=== PATIENT | male | born 1950 | race Caucasian/White ===

== ENCOUNTER 2021-07-13 01:47 | Day surgery (SDC) | payer MEDICARE, SELFPAY ==
[2021-07-01 15:42] VITALS: BMI 30.3
--- NOTE | 2021-07-13 07:01 | PM.HPGS ---
History of Present Illness History of Present Illness Consent: Risks, benefits, and alternatives have been discussed and questions answered. Patient agrees to proceed with procedure. Chief complaint: neoplasm screening Narrative: Andrew Goldman is a 71 year old male referred for colon cancer screening Review of Systems Review of Systems: All systems reviewed & are unremarkable except as noted in HPI and below PMFSH Past Medical History Medical History Diabetes Hyperlipidemia Obesity Family History Family History Father Hypertension Family history of elevated blood lipids Family history of diabetes mellitus in first degree relative Family history of coronary artery disease, Onset Age: 56 Patient's father is Social History Social History Smoking status: Never smoker Second hand tobacco smoke exposure: No Smoking end date: 06/20/10 Alcohol intake: current Drinks per week: 3 Living arrangements: with family Spiritual care concerns: No Meds Home Medications and Allergies Home Medications Medication Instructions Recorded Confirmed Type alogliptin 25 mg PO DAILY 07/01/21 07/13/21 History levocetirizine [Xyzal] 5 mg PO DAILY 07/01/21 07/13/21 History rosuvastatin 20 mg PO DAILY 07/01/21 07/13/21 History Allergies Allergy/AdvReac Type Severity Reaction Status Date / Time atorvastatin Allergy Unknown Other Verified 07/13/21 09:39 codeine Allergy Anaphylaxis Verified 07/13/21 09:39 Exam Resp: Auscultation: clear to auscultation bilaterally Cardio: Rate: regular rate Rhythm: regular rhythm GI: GI Palp: Yes Soft to palpation and No Tenderness to palpation present (GI) Assessment and Plan Assessment and plan (1) Colon cancer screening: Code(s): Z12.11 - Encounter for screening for malignant neoplasm of colon Status: Acute Assessment and Plan: Colonoscopy with possible biopsy or polypectomy or cautery or injection of substances.
[2021-07-13 09:40] VITALS: BP 144/73; PULSE 100; RESP 19; TEMP 36; O2SAT 97; BMI 30.9
[2021-07-13] MEDS: LACTATED RINGERS 1,000 ML 150 ML IV CONT (09:52)
[2021-07-13 09:53] LABS: Glucose Point of Care 176 mg/dl (65-105)
--- NOTE | 2021-07-13 10:02 | WPDANESEPPF ---
Anes - Initial Pre Proc Eval Procedure: Operation Date: 07/13/21 10:45 Proposed Procedures p Screening Colonoscopy - Jeffery Dennis MD Date/Time: 07/13/21 10:02 Surgeon: Jeffery Dennis MD Pre Op Diagnosis: neoplasm screening Patient Data Age: 71 Gender: M Height: 1.78 m Weight: 97.7 kg Last Vital Signs Temp 36.0 C L 07/13/21 09:40 Pulse 100 07/13/21 09:40 Resp 19 07/13/21 09:40 BP 144/73 H 07/13/21 09:40 Pulse Ox 97 07/13/21 09:40 Allergies Allergy/AdvReac Type Severity Reaction Status Date / Time atorvastatin Allergy Unknown Other Verified 07/13/21 09:39 codeine Allergy Anaphylaxis Verified 07/13/21 09:39 Home Medications Medication Instructions Recorded Confirmed Type alogliptin 25 mg PO DAILY 07/01/21 07/13/21 History levocetirizine [Xyzal] 5 mg PO DAILY 07/01/21 07/13/21 History rosuvastatin 20 mg PO DAILY 07/01/21 07/13/21 History Laboratory Tests 07/13/21 09:51 POC Capillary Glucose 176 mg/dl H mg/dl (65-105) Patient hx anesthesia problems: none Family hx anesthesia problems: none Results Review: All pre-operative results and documents have been reviewed as part of the pre-operative evaluation. [facility] Past Medical History Medical History (Updated 07/13/21 @ 10:03 by Checo Lopez MD) Diabetes Hyperlipidemia Obesity Family History Family History (System 11/07/20 @ 16:12 by Hortencia Deng) Father Hypertension Family history of elevated blood lipids Family history of diabetes mellitus in first degree relative Family history of coronary artery disease, Onset Age: 56 Patient's father is Social History Social History (System 11/07/20 @ 16:12 by Hortencia Deng) Smoking status: Never smoker Second hand tobacco smoke exposure: No Smoking end date: 06/20/10 Alcohol intake: current Drinks per week: 3 Living arrangements: with family Spiritual care concerns: No Anes - Eval Final PreProcedure Day of Procedure 07/13/21 10:02 Patient weight: obese Heart: regular rate and rhythm Lungs: clear to auscultation and normal air movement Airway: Mallampati scale class II Neurological: alert and oriented Last oral intake: >/= 8 hours ASA classification: III Emergent: no Anesthetic plan: proceed Anesthesia type and monitoring: general GIVS Results Review: All pre-operative results and documents have been reviewed as part of the pre-operative evaluation. Informed Consent: The patient's anesthetic plan and its attendant risks and benefits were discussed with the patient/family/POA. Questions were solicited and answers provided to the satisfaction of the patient/family/POA.
[2021-07-13 10:54] VITALS: BP 98/58; PULSE 90; RESP 13; O2SAT 98
[2021-07-13 11:04] VITALS: BP 97/53; PULSE 74; RESP 13; O2SAT 98
[2021-07-13 11:12] VITALS: BP 116/68; PULSE 84; RESP 14; O2SAT 98
[2021-07-13 11:24] VITALS: BP 120/71; PULSE 80; RESP 18; O2SAT 100
== END 2021-07-13 11:35 | disposition home or self-care (01) ==
PROVIDERS: PCP Family Medicine; Visit Provider Internal Medicine Gastroenterology
PROC: 0DJD8ZZ Inspection of Lower Intestinal Tract, Via Natural or Artificial Opening Endoscopic (ICD-10-PCS; CPT 45378; principal; 2021-07-13 10:45)
DX: Z12.11 Encounter for screening for malignant neoplasm of colon (principal); D12.4 Benign neoplasm of descending colon; D12.5 Benign neoplasm of sigmoid colon; K63.5 Polyp of colon; E11.9 Type 2 diabetes mellitus without complications; E78.5 Hyperlipidemia, unspecified; E66.9 Obesity, unspecified; Z68.30 Body mass index [BMI] 30.0-30.9, adult
CPT/HCPCS: 45380; 45385; 82948; 88305; J2704; J7120

== ENCOUNTER 2021-09-04 08:34 | Outpatient (CLI) | payer MEDICARE, SELFPAY ==
--- NOTE | ~2021-09-04 | CT_ITS ---
EXAMINATION: CT abdomen pelvis w con DATE: 09/04/2021 09:30 INDICATION: Right lower quadrant intermittent pain. Prior appendectomy. TECHNIQUE: Computed tomography (CT) of the abdomen and pelvis was performed with 100 cc Omnipaque 350 intravenous contrast. The dose-length product was 961.03 mGy-cm. Automated exposure control and iter ative reconstruction technique were employed. COMPARISON: None. FINDINGS: Lung bases are unremarkable. Heart size is normal. No significant pleural or pericardial ef fusion. Fatty infiltration of the liver. Gallbladder is present. The spleen, pancreas, adrenal glands are unremarkable. There are bilateral renal cysts. No hydronephrosis. Gallbladder is present. No lym phadenopathy. There is atherosclerosis of the aorta without aneurysm. No free air or free fluid. Nono bstructive bowel pattern. No abnormal pelvic masses or fluid collections. There is mild osteoarthriti s of the hips. IMPRESSION: 1. No acute abdominal abnormality. Reviewed, dictated and finalized at location B.
[2021-09-04 09:00] LABS: Estimated Glomerular Filt Rate > 60
== END 2021-09-04 08:35 | disposition home or self-care (01) ==
LOC: CHSIMG 08:35
PROVIDERS: PCP Family Medicine; Visit Provider Surgery
DX: R10.31 Right lower quadrant pain (principal)
CPT/HCPCS: 74177; Q9967

== ENCOUNTER 2023-09-16 07:22 | Outpatient (CLI) | payer MEDICARE, SELFPAY ==
[2023-09-21 11:06] LABS: Testosterone Free 52.3 pg/mL (30.0-135.0); Testosterone Total 313 ng/dL (250-1100)
== END 2023-09-16 07:23 | disposition home or self-care (01) ==
LOC: CHSLAB 07:26
PROVIDERS: PCP Family Medicine; Visit Provider Family Medicine
DX: R53.83 Other fatigue (principal)
CPT/HCPCS: 36415; 84402; 84403

== ENCOUNTER 2023-09-21 08:06 | Outpatient (CLI) | payer MEDICARE, SELFPAY ==
[2023-09-21 08:23] LABS: Basophils Absolute Auto 0.04 K/mm3 (0.00-0.10); Basophils Percent Auto 0.7 % (0.0-1.0); Eosinophils Absolute Auto 0.25 K/mm3 (0.02-0.50); Eosinophils Percent Auto 4.7 % (1.0-6.0); Hematocrit 49.6 % (37.0-46.0); Hemoglobin 16.6 g/dL (12.4-15.3); Immature Granulocyte Absolute 0.01 K/mm3 (0.00-0.00); Immature Granulocyte Percent A 0.2 % (0.0-0.0); Lymphocytes Absolute Auto 1.53 K/mm3 (1.10-4.50); Lymphocytes Percent Auto 28.7 % (18.0-42.0); Mean Corpuscular HGB Conc 33.5 g/dL (32-36); Mean Corpuscular Hemoglobin 31.9 pg (27.0-31.0); Mean Corpuscular Volume 95.2 fL (78.0-102.0); Mean Platelet Volume 9.4 fl (8.7-11.0); Monocytes Absolute Auto 0.49 K/mm3 (0.10-0.90); Monocytes Percent Auto 9.2 % (2.0-11.0); Neutrophils Absolute Auto 3.02 K/mm3 (1.70-7.20); Neutrophils Percent Auto 56.5 % (50.0-70.0); Platelet Count Result 242 K/mm3 (150-420); Red Blood Count 5.21 M/mm3 (4.70-6.10); Red Cell Distribution Width 12.7 % (11.6-14.4); White Blood Count 5.3 K/mm3 (4.8-10.8)
[2023-09-21 08:36] LABS: Creatinine Urine 106.91 mg/dL (40-278); Hemoglobin A1C 6.9 % (<5.7); MALB Creatinine Ratio 12.1 mg/g (0-30); Microalbumin Urine Random < 13.0 mg/L
[2023-09-21 09:13] LABS: Alanine Aminotransferase 38 U/L (16-63); Albumin Level 4.3 g/dL (3.4-5.0); Alkaline Phosphatase 75 U/L (46-116); Anion Gap 10 mmol/L (4-12); Aspartate Amino Transferase 22 U/L (15-37); Bilirubin Direct 0.1 mg/dL (0-0.2); Bilirubin,Total 0.6 mg/dL (0.00-1.00); Blood Urea Nitrogen 18 mg/dL (7-18); Calcium 9.1 mg/dL (8.5-10.1); Carbon Dioxide 29 mmol/L (21-32); Chloride 105 mmol/L (98-108); Cholesterol 231 mg/dL (0-200); Estimated Glomerular Filt Rate > 60; Glucose 160 mg/dL (70-99); HDL Direct 65 mg/dL (40-60); LDL Cholesterol Calculated 138 mg/dL (<130); Osmolality Calculated 302 mOsm/kg (285-295); Potassium 4.3 mmol/L (3.5-5.1); Prostate Specific Antigen 1.5 ng/mL (< OR = 4.0); Sodium 144 mmol/L (136-145); Total Protein 7.2 g/dL (6.4-8.2); Triglycerides 139 mg/dL (0-150)
[2023-09-24 20:19] LABS: Testosterone Free 60.1 pg/mL (30.0-135.0); Testosterone Total 473 ng/dL (250-1100)
== END 2023-09-21 08:07 | disposition home or self-care (01) ==
LOC: CHSLAB 08:09
PROVIDERS: PCP Family Medicine; Visit Provider Family Medicine
DX: E78.5 Hyperlipidemia, unspecified (principal); Z79.899 Other long term (current) drug therapy; Z12.5 Encounter for screening for malignant neoplasm of prostate
CPT/HCPCS: 36415; 80048; 80061; 80076; 82043; 83036; 84153; 84402; 84403; 85025; G0103

== ENCOUNTER 2024-07-25 15:08 | Outpatient (CLI) | payer MEDICARE, SELFPAY ==
--- NOTE | ~2024-07-25 | XR_ITS ---
HISTORY: Chronic left lower chest pain/rib pain COMPARISON: 12/29/2016 TECHNIQUE: 3 views of the left ribs were performed along with a PA and lateral view of the chest FINDINGS: The cardiomediastinal silhouette is unremarkable. The lungs are year. No acute or subacute displaced left-sided fracture is appreciated. Bone mineralization is age-appropriate. IMPRESSION: No focal infiltrate or effusion. No acute or subacute displaced left-sided rib fracture. The 09/04/2021 CT scan demonstrated a large cyst exophytic from the upper pole of the left kidney, wit hin the region of clinical concern. Perhaps this is the source of patients pain? Repeat contrast-en hanced CT of the abdomen and pelvis versus focused renal ultrasound is recommended for further evalua tion. Please reach out to me personally for any questions regarding these recommendations at [phone] Reviewed, dictated and finalized at location A. O COLORER IMPRESSION: No focal infiltrate or effusion. No acute or subacute displaced left-sided rib fracture. The 09/04/2021 CT scan demonstrated a large cyst exophytic from the upper pole o f the left kidney, within the region of clinical concern. Perhaps this is the source of patients pain? Repeat contrast-enhanced CT of the abdomen and pelvis versus focused renal ultrasound is recommended for further evaluation. Please reach out to me personally for any questions regarding these recommendat ions at [phone]
--- OUTSIDE RECORDS SUMMARY | 2024-07-25 15:43 | XMS_ITS | Encounter Summary ---
Author Organization [facility] Address 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
--- OUTSIDE RECORDS SUMMARY | 2024-07-25 15:43 | XMS_ITS | Encounter Summary ---
Author Organization [facility] Address 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 HISTORY: HISTORY: 272.4-HYPERLIPIDEMIA The patient's most recent LDL was not at goal. 305.1-TOBACCO ABUSE The patient stopped using tobacco products. 466.0-BRONCHITIS ACUTE The patient denies an increase in shortness of breath, sputum production, orseverity of cough. 796.2-BLOOD PRESSURE ELEVATED W/O DX OF HTN The patient denies chest pain, shortness of breath, dyspnea on exertion, pedal edema, or headache. 461.9-SINUSITIS UNSPECIFIED allergy sx PAST MEDICAL HISTORY: MEDICAL: Hypercholesterolemia. 2004 SURGICAL: No previous surgery. CURRENT MEDICATIONS: Patient is currently on no medication. ALLERGIES/ADVERSE REACTIONS: No known drug allergies. FAMILY HISTORY: FATHER: The father is . The cause of was complications of diabetes. occurred atage 56. MOTHER: The mother is living. Illnesses: Alzheimer's disease. SIBLINGS: Nine siblings. Healthy except as noted below. Brother in auto accident SOCIAL HISTORY: MARITAL HISTORY: , living with spouse. LIVING WILL: The patient does not have a living will. TOBACCO USE: Stopped using cigarettes several years ago. 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 CAFFEINE: A minimal amount of caffeinated beverages daily. EXERCISES: The patient is not exercising regularly. DIET: Follows no specific diet. SAFETY ISSUES: Uses seat belts. PHYSICAL EXAMINATION: CONSTITUTIONAL: GENERAL APPEARANCE: Healthy appearing patient in no distress. EARS, NOSE, MOUTH AND THROAT: EARS: EFFUSION PRESENT BILATERALLY. ORAL: Inspection of gums, lips, palate, and teeth normal. No scars, lesions, or masses. Oral mucosaunremarkable with non-inflamed posterior pharynx. NECK/THYROID: Trachea midline. No thyroid enlargement, tenderness, or mass. No supraclavicular or cervical adenopathy. RESPIRATORY: Clear to auscultation and percussion. Normal respiratory effort. CARDIOVASCULAR: CARDIAC: Regular rhythm. No murmurs, rubs, or gallops. ARTERIAL: Aortic pulses of normal amplitude with no bruits. EDEMA/VARICOSITIES OF EXTREMITIES: No edema or varicosities. GASTROINTESTINAL: ABDOMEN: Soft, non-tender, without masses. Bowel sounds active. LIVER/SPLEEN/KIDNEY: No hepatosplenomegaly, tenderness or nodularity. Kidneys not palpable. RECTAL: Rectal exam reveals no masses or hemorrhoids, sphincter tone is normal. STOOL/HEMOCCULT: Stool is hemoccult negative. Stool is normal. GENITOURINARY: PROSTATE: 2+ ENLARGED, symmetrical, soft, smooth. ASSESSMENT/PLAN: 272.4-HYPERLIPIDEMIA discussed, start med MEDICATIONS: ZOCOR ORAL TABLET 20 MG, 1 Every Day, 30 Dispensed, 4 Fills, status: NEW PRESCRIPTION, 09/22/2005. LAB ORDERS: 3 mo Order number: [id number] Test Ordered: LIPID PANEL 7600 Order number: [id number] Test Ordered: ALT 823 305.1-TOBACCO ABUSE quit 602.9-OTHER DISORDERS OF PROSTATE psa ok, recheck 1 year LAB ORDERS: Order number: [id number] Test Ordered: HEMOCCULT SINGLE 66146 796.2-BLOOD PRESSURE ELEVATED W/O DX OF HTN better, reassess 461.9-SINUSITIS UNSPECIFIED MEDICATIONS: RAUL ORAL TABLET 180 MG, 1 Every Day, 30 Dispensed, 4 Fills, status: NEW PRESCRIPTION, 09/22/2005. RETURN VISIT : Patient instructed to return in 3 months. Electronically Signed by: Nki Winn MD on Thursday, September 22, 2005 documented in this encounter Plan of Treatment Not on file documented as of this encounter Visit Diagnoses Not on filedocumented in this encounter
--- OUTSIDE RECORDS SUMMARY | 2024-07-25 15:43 | XMS_ITS | Clinical Summary ---
Author Organization [facility] Address [address] [facility] Attn: Epic Prelude ADT TAMANNA ALVES [address] Care Team Providers Care Child Day Care Provider Name Role Phone Unavailable Primary Care Provider Unavailabl e Allergies Active Allergy Reactions Criticality Noted Date Comments No Known Allergies 08/09/2005 Medications ALBUTEROL 90 MCG/ACTUATION AEROSOL INHALER 2 Four Times A Day, As Needed 1.00 0 08/09/2005 Active LEVAQUIN 500 MG TAB 1 Every Day 10.00 0 08/09/2005 Active RAUL 180 MG TAB 1 Every Day 30.00 4 09/22/2005 Active ZOCOR 20 MG TAB 1 Every Day 30.00 4 09/22/2005 Active Active Problems Problem Noted Date Diagnosed Date Acute sinusitis, unspecified 09/22/2005 Screening for malignant neoplasm of the rectum 0 09/22/2005 Other and unspecified hyperlipidemia 08/09/2005 Acute bronchitis 08/09/2005 Screening for thyroid disorder 08/09/2005 Special screening for malignant neoplasm of pros hopson 08/09/2005 Tobacco use disorder 08/09/2005 Elevated blood pressure read ing without diagnosis of hypertension 08/09/2005 Unspecified disorder of prostate 08/09/2005 Immunizations Immunization Administration Dates Next Due (TDVAX)(7 YRS UP) TETANUS AN D DIPHTHERIA TOXOIDS, ADSORBED (2 LF OF TETANUS TOXOID AND 2 LF OF DIPHTHERIA TOXOID), 0.5ML (PF), IM 11/26/1998 Social History Tobacco Use Types Packs/Day Years Used Date Smoking Tobacco: Never Assessed Sex and Gender Information Value Date Recorded Sex Assigned at Not on file 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 Gender Identity Not on file Sexual Orientation Not on file Last Filed Vital Signs Vital Sign Reading Time Taken Comments Blood Pressure 140/90 08/09/2005 12:00 PM ROD BENDING MACHINE OPERATOR Pulse - - Temperature 36.4 C (97.52 F) 08/09/2005 12:00 PM ROD BENDING MACHINE OPERATOR Respiratory Rate - - Oxygen Saturation - - Inhaled Oxygen Concentration - - Weight 98.9 kg (218 lb) 08/09/2005 12:00 PM ROD BENDING MACHINE OPERATOR Height 180.3 cm (5' 11 ) 08/09/2005 12:00 PM ROD BENDING MACHINE OPERATOR Body Mass Index 30.4 08/09/2005 12:00 PM ROD BENDING MACHINE OPERATOR Plan of Treatment Health Maintenance Due Date Last Done Comments COLORECTAL SCREENING 02/02/1996 FIT-DNA Q 3 years 02/02/1996 Flex Sig/CT Colonography Q 5 years 02/02/1996 DTAP/TDAP/TD VACCINES (1 - Tdap) 11/27/1998 11/26/18 99 PNEUMOCOCCAL VACCINE 65+ YEARS (1 of 1 - PCV) 02/02/20 01 ZOSTER VACCINE (1 of 2) 2001 Colorectal Cancer Screening 09/22/2006 FIT/FOBT Q 1 year 09/22/2006 09/22/2005 INFLUENZA VACCINE (#1) 2024 RSV VACCINE (60+ or ) (1 - 1-dose 75+ series) 2026
--- OUTSIDE RECORDS SUMMARY | 2024-07-25 15:43 | XMS_ITS | Encounter Summary ---
Author Organization [facility] Address 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
--- OUTSIDE RECORDS SUMMARY | 2024-07-25 15:43 | XMS_ITS | Encounter Summary ---
Author Name [facility] of [facility] Affairs ([place]) [facility] Address [address] [place] [address] Care Team Providers Care Marketing Rep Name Role Phone SANGEETA LOPEZ Primary Care Provider Unavailabl e Insurance Providers: All historical and current Section Date Range: From patient's date of to the date document was created. This section includes the names of all active insurance providers for the patient. Insurance Provider Type of Coverage Plan Name Start of Policy Coverage End of Policy Coverage Group Number Member ID Insurance Provider's Telephone Number Policy Smith's Name Patient's Relationship to Policy Smith AARP [facility] CLAIMS MEDIGAP PLAN F MEDIC ARE SUPPL EMENT Jun 20, 2017 PLAN F [id number] [phone] ETSELA GOLDMAN RNARD PATIENT MEDICARE (WNR) MEDICARE (M) PART A Jan 19, 2016 PART A [id number] [phone] ESTELA GOLDMAN RNARD PATIENT MEDICARE (WNR) MEDICARE (M) PART B Jan 19, 2016 PART B [id number] ESTELA GOLDMAN RNANADIRA PATIENT Selected Encounter This section includes the information on record at DC for the Encounter. Date/Time Encounter Type Encounter Description Reason Provider Source October 20, 2023 03:00 PM Outpatient Encounter PRIMARY CARE/MEDICINE ICD-10-CM Z00.00 Encntr for general adult medical exam w/o abnormal findings SANGEETA LOPEZ Amanda Encounter Template Text not used by DC Assessments - Encounter Diagnoses This section includes the primary and secondary diagnoses documented for the Encounter. Date/Time Primary/Secondary Diagnosis Diagnosis Name Provider Source October 20, 2023 03:21 PM PRIMARY Encntr for general adult medical exam w/o abnormal findings SANGEETA LOPEZ [facility] October 20, 2023 03:21 PM SECONDARY Allergic rhinitis, unspecified SANGEETA LOPEZ [facility] October 20, 2023 03:21 PM SECONDARY Chronic obstructive pulmonary disease, unspecified SANGEETA LOPEZ [facility] October 20, 2023 03:21 PM SECONDARY Contact with and exposure to other hazardous substances SANGEETA LOPEZ [facility] October 20, 2023 03:21 PM SECONDARY Hyperlipidemia, unspecified SANGEETA LOPEZ [facility] October 20, 2023 03:21 PM SECONDARY Type 2 diabetes mellitus without complications [place]AV[place]ANGEETA [facility] Plan of Treatment: Future Appointments (+ 6 months) and Future Tests (+/- 45 days) The Plan of Treatment section includes future care activities for the patient from all [facility]. This section includes future appointments and future orders which are active, pending or scheduled. Future Appointments This section includes appointments that were scheduled to occur 6 months from the date of the Encounter, up to a maximum of 20 appointments. The data comes from all [facility] facilities. Appointment Date/Time Appointment Type Appointme nt Facility Name Nov 25, 2023 07:30 AM AMBULATORY - NONE [facility] Vital Signs: All taken on the encounter date This section contains inpatient and outpatient Vital Signs collected on the date of the Encounter. Date/Time Temperature Pulse Blood Pressure Respiratory Rate SP02 Pain Height Weight Body Mass Index Source October 20, 2023 03:11 PM 139/65 [facility] October 20, 2023 02:52 PM 142/70 [facility] October 20, 2023 02:44 PM 97.9 74 168/74 18 96 0 71 206.2 29 [facility] Social History: Smoking Status (Most current) and Tobacco Use (All prior to encounter date) This section includes the most current, and the historical, smoking and tobacco- related health factors from the [place] facility where the Encounter took place. Current Smoking Status This section includes the most current smoking, or tobacco-related health factor, from the [place] facility where the Encounter took place. Date/Time Current Smoking Status Comment Facil ity October 20, 2023 03:00 PM VA-TOBACCO FORMER USER [facility] Tobacco Use History This section includes a history of the smoking, or tobacco-related health factors, that were collected on or before the date of the Encounter. The data comes from the [place] facility where the Encounter took place. Date/Time Smoking Status/Tobacco Use Comment F acility October 20, 2023 03:00 PM VA-TOBACCO QUIT 15 YRS OR MORE [facility] Sep 07, 2018 08:30 AM VA-TOBACCO FORMER USER [facility] Sep 07, 2018 08:30 AM DC-TOBACCO QUIT 5 TO < 15 YRS [facility] Encounter Notes: All associated encounter notes This section contains the clinical notes associated to the Encounter. Date/Time Encounter Note(s) Provider Source Nov 28, 2023 08:32 AM PHYSICIAN LETTERS: LOCAL TITLE: TEST RESULT GENERAL LETTER [facility] STANDARD TITLE: PHYSICIAN LETTERS DATE OF NOTE: NOV 28, 2023@08:32 ENTRY DATE: NOV 28, 2023@08:32:36 AUTHOR: SANGEETA LOPEZ EXP COSIGNER: URGENCY: STATUS: COMPLETED [facility] [address] [place] [address] NOV 28, 2023 MARY ANN GOLDMAN [address] [place] [address] [place] [place], [place] [address] Dear Mary Ann Goldman, I would like to update you on your recent test results. Exam Date/Time 11/25/2023 07:02 Procedure Name US AAA SCREENING Reason for Study Screening due to smoking history Impression No sonographic evidence of abdominal aortic aneurysm. #YOUR SCREENING ULTRASOUND OF YOUR AORTA IS NORMAL; THERE IS NO EVIDENCE OF AN ANEURYSM. What is a AAA screening? Abdominal aortic aneurysm (AAA) screening is a way of checking if there's a bulge or swelling in the aorta, the main blood vessel that runs from your heart down through your tummy. This bulge or swelling is called an abdominal aortic aneurysm, or AAA. It is recommended to do a 1 time screening for AAA with an ultrasound in men aged 65-75 who have a history of smoking. If you have any questions please call your case mgr. I look forward to seeing you at your next clinic appointment. Thank you for choosing the [facility] for your healthcare. FUTURE APPOINTMENTS: 10/23/2024 10:00 [place] CLR PACT 3 PCP Sincerely, Sangeeta Lopez DNP, GARAGE DOOR INSTALLER, PACKAGE DYEING MACHINE OPERATOR-C Primary Care Nurse Practitioner MARY ANN GOLDMAN,SANGEETA REAL RUBEN [facility] October 20, 2023 02:45 PM NURSING NOTE: LOCAL TITLE: V15 PACT FACE TO FACE NOTE ST STANDARD TITLE: NURSING NOTE DATE OF NOTE: OCTOBER 20, 2023@14:45 ENTRY DATE: OCTOBER 20, 2023@14:45:37 AUTHOR: CAYLA CHAN EXP COSIGNER: URGENCY: STATUS: COMPLETED Provider Visit: Patient Identifiers : Full Name Date of Reason for visit: Established Follow-Up Mode of Arrival: Ambulatory Allergy Review: Patient has answered NKA Allergy list reviewed and remains current. Recent Vital Signs: Temperature: 97.9 F [36.6 C] (10/20/2023 14:44) Pulse: 74 (10/20/2023 14:44) Respiration: 18 (10/20/2023 14:44) B/P: 168/74 (10/20/2023 14:44) Pain: 0 (10/20/2023 14:44) Wt: 206.2 lb [93.53 kg] (10/20/2023 14:44) Ht: 71 in [180.3 cm] (10/20/2023 14:44) BMI: 28.8 POX: 96% (10/20/2023 14:44) Would you like to discuss any personal problem, family problem, alcohol use, drug use, or a mental or emotional illness? No Contact provided Primary Care phone number and encouraged to call if any questions or concerns. Review that after hours nurse line [phone] and emergency room are available 10/01 for patient use. Contact verbalized good understanding. Suicide Screen: C-SSRS Screening Emanuel-Suicide Severity Rating Scale (C-SSRS Screener) 1. Over the past month, have you wished you were or wished you could go to sleep and not wake up? No 2. Over the past month, have you had any actual thoughts of killing yourself? No 3. Over the past month, have you been thinking about how you might do this? Response not required due to responses to other questions. 4. Over the past month, have you had these thoughts and had some intention of acting on them? Response not required due to responses to other questions. 5. Over the past month, have you started to work out or worked out the details of how to kill yourself? Response not required due to responses to other questions. 6. If yes, at any time in the past month did you intend to carry out this plan? Response not required due to responses to other questions. 7. In your lifetime, have you ever done anything, started to do anything, or prepared to do anything to end your life (for example, collected pills, obtained a gun, gave away valuables, went to the roof but didn't jump)? No 8. If YES, was this within the past 3 months? Response not required due to responses to other questions. Toxic Exposure Screening: The [place]/caregiver was asked if they believe the experienced any toxic exposure(s), such as Airborne Hazards and Open Burn Pit, [place] War related exposures, Agent [place], Radiation, contaminated water at [place] or other such exposures, while serving in the Armed Forces. [place]/caregiver believes the was exposed to the following while serving in the Armed Forces: Agent [place]: [place]/caregiver was made aware of educational resources that includes information on the Registry Program, presumptive conditions and how to file a claim. Printed information was offered and provided if desired. No questions at this time /caregiver was informed of local points of contact. Contact information for local resources: [facility] Registry Exam Program: [phone] Eligibility: [phone] [id number] Toxic Exposure Screening Follow-Up reminder is needed. Name of person notified: Sangeeta Lopez NP Alcohol Use Screen (AUDIT-C): Alcohol Screen: SCREEN FOR ALCOHOL (AUDIT-C) An alcohol screening test (AUDIT-C) was negative (score=3). 1. How often did you have a drink containing alcohol in the past year? Consider a drink to be a 12 ounce can or bottle of regular beer, 8 ounces of malt liquor, a 5 ounce glass of table wine, or a 1.5 ounce shot of liquor (like scotch, gin, or vodka). Two to three times per week 2. How many drinks containing alcohol did you have on a typical day when you were drinking in the past year? One or two drinks 3. How often did you have six or more drinks on one occasion in the past year? Never Depression Screening: Perform PHQ-2 A PHQ-2 screen was performed. The score was 0 which is a negative screen for depression. Over the past two weeks, how often have you been bothered by the following problems? 1. Little interest or pleasure in doing things Not at all 2. Feeling down, depressed, or hopeless Not at all Homelessness/Food Insecurity Screen: In the past 2 months, have you been living in stable housing that you own, rent, or stay in as part of a household? Yes - Living in stable housing. Are you worried or concerned that in the next 2 months you may NOT have stable housing that you own, rent, or stay in as part of a household? No - Not worried about housing near future The [place] reports the following: Within the past 12 months, you worried whether your food would run out before you got money to buy more. Never true Within the past 12 months, the food you bought just didn't last and you didn't have money to get more. Never true PTSD Screening: PC-PTSD-5 A PTSD screening test (PC-PTSD-5) was negative (score=1). IN THE PAST MONTH, have you ever had any experience that was so frightening, horrible or traumatic. For example: A serious accident or fire a physical or sexual assault or abuse An earthquake or flood A war Seeing someone be killed or seriously injured Having a loved one through homicide or suicide 1. Have you ever experienced this kind of event? YES 2. Had nightmares about the event(s) or thought about the event(s) when you did not want to? NO 3. Tried hard not to think about the event(s) or went out of your way to avoid situations that reminded you of the event(s)? YES 4. Been constantly on guard, watchful, or easily startled? NO 5. [place] numb or detached from people, activities, or your surroundings? NO 6. [place] guilty or unable to stop blaming yourself or others for the event(s) or any problems the event(s) may have caused? NO Learning Assessment: - * This patient's learning ABILITIES, BARRIERS to learning, CULTURAL and ADVENT beliefs, and learning PREFERENCES were assessed. Following are findings of note: Patient reads well. Comment: reading glasses LANGUAGE Patient reports that Botswanan is preferred language for healthcare. Patient reports learning preference is to refer to handouts. Nilam Fall Risk Opt Assessment STL: Nursing Fall Risk Outpatient Assessment Patient reports no falls within the past 12 months. Tobacco Use Screening: The patient is a former tobacco user. The patient quit fifteen or more years ago. /martha/ CAYLA CHAN LPN LICENSED PRACTIAL NURSE Signed: 10/20/2023 14:54 [facility] 20, 2023 02:44 PM PRIMARY CARE NOTE: LOCAL TITLE: PRIMARY CARE PROVIDER ESTABLISHED VISIT [facility] STANDARD TITLE: PRIMARY CARE NOTE DATE OF NOTE: OCTOBER 20, 2023@14:44 ENTRY DATE: OCTOBER 20, 2023@14:44:32 AUTHOR: SANGEETA LOPEZ: URGENCY: STATUS: COMPLETED PRIMARY CARE PROVIDER ESTABLISHED VISIT ST Has ADDENDA REASON FOR VISIT/CHIEF COMPLAINT: Evaluation and management of chronic medical conditions/ My scheduled visit HPI: Patient is a 73 year old WHITE MALE who presents to the clinic for evaluation and management of chronic medical conditions. Patient denies any recent ED visits or hospitalizations. Patient goes by Pat. Private providers: -Patient reports his private PCP manages his primary care. Patient reports coming to the DC for his medications. -Private PCP Dr. Nissa Cordero. Patient reports this PCP is pending to retire and will find a new PCP. #DM 2: -HGA1C 7.5 H % 08/11/2022. Reports has obtained in the private sector recently and was <7.0. -Medications: EMPAGLIFLOZIN. -Reports compliance to medication regimen. -Checking blood sugar: Denies. Denies having diabetic supplies at home, declines supplies today. -Eye exam: Had Tele retinal 10/20/23. -Foot exam: See reminders. -Micral: Due. -Statin: Yes. -ACEI: None. -Denies recent hypo/hyperglycemia episodes. #HLD: -Medication: Simvastatin. -Reports compliance with medication regimen. -Denies any new onset of myalgias. #COPD: -Medications: Albuterol PRN. -Denies increased SOB, coughing, wheezing, mucus production or hemoptysis. #Allergic rhinitis: -Medication: Benadryl PRN and Sinus rinses. -Controlled per patient. SOURCE(S) OF HISTORY: Patient PAST MEDICAL HISTORY: 1) Diabetes Mellitus Type 2 ([facility] [id number]) 2) COPD - Chronic Obstructive Pulmonary Disease ([facility] [id number]) 3) Hyperlipidemia ([facility] [id number]) SOCIAL HISTORY: Tobacco: Former smoker. Quit at age 51. Smoked from ages [age] 1 PPD. Alcohol: 1 glass of wine 1-2 times per week. Illicit: Denies. -Patient lives with . Patient has three children. ALLERGIES: Patient has answered NKA ALLERGY REVIEW: Allergy list reviewed and remains current. MEDICATIONS: Active and Recently Outpatient Medications (excluding Supplies): Active Outpatient Medications Status 1) ALBUTEROL 90MCG (CFC-F) 200D ORAL INHL INHALE 2 PUFFS ACTIVE BY ORAL INHALATION FOUR TIMES A DAY NEEDED FOR BREATHING. SHAKE WELL. RINSE MOUTHPIECE FREQUENTLY TO PREVENT CLOGGING. 2) EMPAGLIFLOZIN 25MG TAB TAKE ONE TABLET BY MOUTH ONCE ACTIVE A DAY 3) SIMVASTATIN 80MG TAB TAKE ONE-HALF TABLET BY MOUTH ACTIVE EVERY EVENING TO LOWER CHOLESTEROL (REPORT ANY MUSCLE PAIN OR WEAKNESS) REVIEW OF SYSTEMS: Constitutional: Denies weight loss, fever, chills. Ears, Nose, Mouth, Throat: Denies nasal drainage or sore throat. Denies dizziness. Endocrinology: Denies heat or cold intolerance, polydipsia, polyuria, or polyphagia. Cardiovascular: Denies chest pain, palpitations, or dizziness. Respiratory: Denies cough or shortness of breath. ABD/GI: Denies abdominal pain, nausea, vomiting, constipation, diarrhea or incontinence. Musculoskeletal/Extremities : Denies edema. Denies pain. /SALES VENDOR: Denies frequency, hesitancy, urgency, or hematuria. Psychology: Denies insomnia or SI/HI. Denies anxiety or depression. Neurology: Denies RAMIREZ, tremors, neuropathy, or seizures. Skin: Denies rashes, skin lesions. PHYSICAL EXAMINATION: VITALS (most recent, as listed in the electronic record): Temperature: 97.9 F [36.6 C] (10/20/2023 14:44) BP: 139/65 (10/20/2023 15:11) Pulse: 74 (10/20/2023 14:44) Resp: 18 (10/20/2023 14:44) PulsOx: 96% (10/20/2023 14:44) Pain: 0 (10/20/2023 14:44) Weight: Measurement DT WEIGHT LB(KG)[BMI] 10/20/2023 14:44 206.2(93.53)[29*] HEENT: EOMI, PERRLA, Moist mucous membranes. No Scleral icterus or cervical lymphadenopathy. Lungs: Clear to auscultation bilaterally. No accessory muscle use. Cardiovascular: Regular rate and rhythm. No murmur. No JVD. Abdomen: Soft, nontender and non-distended. No palpable masses. Positive bowel sounds in all four quadrants. Extremities: No edema. Nontender. Full ROM to all joints. Gait steady. : Deferred. Neurologic: No focal neurological deficits. Psychiatric: Appropriate mood and affect. Skin: Skin warm, dry and intact. No lesions or rashes noted. DATA REVIEW: HGA1C 7.5 H % 08/11/2022 08:13 Lipid Panel: TRIGLYCERIDE 102 mg/dL 08/11/2022 08:13 CHOLESTEROL 196 mg/dL 08/11/2022 08:13 HDL(New) 54 mg/dL 08/11/2022 08:13 CALCULATED LDL 122 mg/dL 08/11/2022 08:13 CMP: SODIUM 142 mEq/L 08/11/2022 08:13 POTASSIUM 5.3 H mEq/L 08/11/2022 08:13 CHLORIDE 108 H mEq/L 08/11/2022 08:13 UREA NITROGEN 16 mg/dL 08/11/2022 08:13 CREATININE 0.82 mg/dL 08/11/2022 08:13 CALCIUM 9.4 mg/dL 08/11/2022 08:13 PROTEIN 7.0 g/dL 08/11/2022 08:13 ALBUMIN 4.4 g/dL 08/11/2022 08:13 ALKALINE PHOSPHATASE 64 U/L 08/11/2022 08:13 ALT/SGPT 21 U/L 08/11/2022 08:13 AST/SGOT 25 U/L 08/11/2022 08:13 TOTAL BILIRUBIN 0.6 mg/dL 08/11/2022 08:13 CARBON DIOXIDE 24 mEq/L 08/11/2022 08:13 GLUCOSE 118 H mg/dL 08/11/2022 08:13 EGFR (CKD-EPI 2020) 93.9 08/11/2022 08:13 CBC: WBC 6.0 10*3/uL 08/11/2022 08:13 RBC 5.01 10*6/uL 08/11/2022 08:13 HGB 15.5 g/dL 08/11/2022 08:13 HCT 46.6 % 08/11/2022 08:13 MCV 93.0 fL 08/11/2022 08:13 MCH 30.9 pg 08/11/2022 08:13 MCHC 33.3 g/dL 08/11/2022 08:13 RDW 12.8 % 08/11/2022 08:13 PLT 235 10*3/uL 08/11/2022 08:13 MPV 10.4 fL 08/11/2022 08:13 NEUTROPHILS, AUTO % 58 % 08/11/2022 08:13 LYMPHOCYTES, AUTO % 26 % 08/11/2022 08:13 MONOCYTES, AUTO % 10 % 08/11/2022 08:13 EOSINOPHILS, AUTO % 5 % 08/11/2022 08:13 BASOPHILS, AUTO % 1 % 08/11/2022 08:13 IMMATURE GRANS, AUTO % 0.3 % 02/25/2022 08:18 NEUTROPHILS, ABSOLUTE 3.45 10*3/uL 08/11/2022 08:13 LYMPHOCYTES, ABSOLUTE 1.55 10*3/uL 08/11/2022 08:13 MONOCYTES, ABSOLUTE 0.62 10*3/uL 08/11/2022 08:13 EOSINOPHILS, ABSOLUTE 0.29 10*3/uL 08/11/2022 08:13 BASOPHILS, ABSOLUTE 0.05 10*3/uL 08/11/2022 08:13 IMMATURE GRANS, AUTO ABS 0.02 10*3/uL 02/25/2022 08:18 PSA: PROST. SPECIFIC AG.(PB-STL) 1.178 ng/mL 08/11/2022 08:13 Result: Acceptable Health maintenance: -Declines immunizations today. Immunization Series Date Facility Reaction COVID-19 (MODERNA), MRNA, LNP-S,* 2 07/29/2020 [facility] COVID-19 (MODERNA), MRNA, LNP-S,* 1 07/08/2020 [facility] COVID-19 (PFIZER), MRNA, LNP-S, * 5 03/29/2022 [facility] COVID-19 (PFIZER), MRNA, LNP-S, * 3 03/27/2021 [facility] COVID-19 (PFIZER), MRNA, LNP-S, * 2 07/29/2020 [facility] <C> COVID-19 (PFIZER), MRNA, LNP-S, * 1 07/08/2020 [facility] <C> COVID-19 (PFIZER), MRNA, LNP-S, * 4 10/12/2021 [facility] COVID-19 (PFIZER), MRNA, LNP-S, * 1 03/22/2023 [facility] INFLUENZA VACCINE, QUADRIVALENT,* 1 03/22/2023 [facility] PNEUMOCOCCAL CONJUGATE PCV 13 2 02/02/2018 [facility] PNEUMOCOCCAL POLYSACCHARIDE PPV23 1 12/15/2016 [facility] ZOSTER RECOMBINANT 2 11/18/2022 [facility] ZOSTER RECOMBINANT 1 08/17/2022 [facility] -Reports being UTD on TDAP. Colonoscopy: Obtained in the private sector in approx. 2021, denies mentioning a repeat. Patient unsure of name of GI specialist. Patient reports his has a history of colon cancer. PSA: 1.178 ng/mL 08/11/2022. LDCT: Does not qualify. AAA screening: Due. Ordered. Eye exam: Eye clinic contact information given. Obtains labs in the private sector. Reports he will drop off his latest labs and A&P from private PCP to the clinic to continue to fill the veterans medications. ASSESSMENT/PLAN: Annual visit: -Routine labs reviewed. -Preventative health screenings reviewed. -Recommend regular eye exams. -Discussed Fall Safety. -Continue wearing mask in public and wash hands frequently. -Immunizations reviewed. -Evaluation and management per private PCP. DM 2: -Continue medication regimen. -Reviewed lifestyle modifications. -Educated to check feet daily and to have an eye exam yearly. -Evaluation and management per private PCP. HLD: -Continue medication regimen. -Reviewed lifestyle modifications including participating in a low fat/low cholesterol diet. -Dietitian contact information given. -Evaluation and management per private PCP. COPD: -Controlled -Continue medication regimen. -Reviewed lifestyle modifications. -Evaluation and management per private PCP. Allergic rhinitis: -Continue medication regimen. -Educated to limit exposures to allergens, wash bedding in hot water weekly, decrease humidity in the home, and to avoid firsthand or secondhand smoke. -Evaluation and management per private PCP. RETURN TO CLINIC: 1 year or earlier as needed f2f. SUMMARY STATEMENT: Plan of care has been discussed with including expected therapeutic benefits and potential side effects of prescribed medication and treatments. [place] verbalizes understanding and is in agreement with the plan of care. Patient was instructed to keep all scheduled appointments and contact admissions evaluator for any additional problems. 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 Handwritten corrections, additions and/or deletions were made to the list, as appropriate. Corrected Outpatient Medication List was provided to the patient/caregiver. Toxic Exposure Screening Follow-Up: Exposure Concern(s): 10/20/2023 Agent [place] - Toxic Exposure Concern Follow-up Question(s): 10/20/2023 No Questions - Toxic Exposure Concern declines further assistance at this time. Inhaler Use in COPD: Patient declined inhaler use counseling at this encounter. Diabetes Hemoglobin A1c: Patient refused to have a HBGA1c. Avg Risk Colorectal Cancer Screen: AVERAGE RISK colorectal cancer screening is due based on information available to this clinical reminder Patient has arranged or is choosing to arrange this care independent of and without assistance from this DC. Sexual Orientation: The patient thinks of their sexual orientation as: Straight or Heterosexual PAVE Foot Check: A complete foot check was completed at this encounter. VISUAL INSPECTION: Includes inspection for skin breaks, deformity, erythema, trauma, pallor on elevation, dependent rubor, nail deformities, extensive callus and pitting edema. Visual exam results: Normal PEDAL PULSES: Includes palpation of dorsalis and posterior tibial pulses and signs/symptoms of vascular compromise like pain, pallor, parasthesia or paralysis. Present (even if diminished) SENSORY CHECK: Includes 10 gram Monofilament ([place]-Andrew) test of sensation. Intact (Greater than or equal to 80% of sites checked) Abnormal (Less than 80% of sites checked): Intact LOW-RISK: LOW RISK INFORMATION PROVIDED: 1. Advised patient not to walk barefoot. 2. Explained the importance of daily foot checks for changes. 3. Stressed the importance of daily foot hygiene, including bathing and complete drying. The patient verbalized understanding and was offered a detailed handout on diabetic foot care. HTN Assess for Elevated BP>=140/90: Repeat blood pressure: 139/65 The patient was counseled on the importance of regular exercise and/or physical activity in the control of blood pressure. The patient was instructed to try to participate in 120 minutes of aerobic exercise per week if possible and that any increase in physical activity may be useful in controlling blood pressure. The patient was counseled on the importance of diet and weight loss/ control in the regulation of blood pressure. The patient was counseled to reduce their weight to within 10 percent of their ideal body weight. The possible improvement in blood pressure control with even 5 to 10 pounds of weight loss was reviewed. The contribution of dietary sodium to elevated blood pressure was reviewed. The patient was counseled to have a goal sodium intake of 1500mg per day, with no more than 2300mg per day. The patient was counseled that a diet low in dietary saturated and trans fats is beneficial in lowering blood pressure. The patient was counseled that a diet rich in fresh fruits, vegetables and whole grains is beneficial in lowering blood pressure. The patient was counseled to limit alcohol intake to no more than 2 drinks per day for men and 1 drink per day for women. /martha/ Sangeeta Lopez DNP, APRN, PACKAGE DYEING MACHINE OPERATOR-C Primary Care Nurse Practitioner Signed: 10/20/2023 15:21 11/28/2023 ADDENDUM STATUS: COMPLETED Will mail result letter to patient. Exam Date/Time 11/25/2023 07:02 Procedure Name US AAA SCREENING Reason for Study Screening due to smoking history Impression No sonographic evidence of abdominal aortic aneurysm. /nahid Lopez DNP, APRN, PACKAGE DYEING MACHINE OPERATOR-C Primary Care Nurse Practitioner Signed: 11/28/2023 08:32 SANGEETA LOPEZ RUBEN [facility]
--- OUTSIDE RECORDS SUMMARY | 2024-07-25 15:44 | XMS_ITS | Continuity of Care Document ---
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 It does not include entries that were removed or entered in error. Problem Status Onset Date Problem Type Date of Resolution Comments Source Allergic rhinitis Active Condition [facility] COPD - Chronic Obstructive Pulmonary Disease ([facility] [id number]) Active Condition [facility] Diabetes Mellitus Type 2 ([facility] [id number]) Active Condition [facility] Exposure to potentially hazardous substance ([facility] [id number]) Active Condition October 20 Entered By: KENNETH QUINTERO Comment: Entered automatically through IVAN Problem List documentation program [facility] Hyperlipidemia ([facility] [id number]) Active Condition [facility] Diagnosis: ICD-10-CM Z13.5 Encounter for screening for eye and ear disorders Active Diagnosis [facility] Diagnosis: ICD-10-CM Z00.00 Encntr for general adult medical exam w/o abnormal findings Active Diagnosis [facility] Medications Combined list of outpatient medications from [facility] facilities.Medications provided include 1) outpatient medications from the last 15 months, and 2) patient-reported medications. Medication Details Route Status Patient Instructions Prescription Expires Prescription Number Last Dispense Date Ordering Provider Order Date Order Qty Source ALBUTEROL SO4 90MCG/ACTUA T (CFC-F) INHL,ORAL,8 .5GM INHALE 2 PUFFS BY ORAL INHALATI ON FOUR TIMES A DAY NEEDED FOR BREATHIN G. SHAKE WELL. RINSE MOUTHPIE CE FREQUENT LY TO PREVENT CLOGGING . RESPIR ATORY (INHAL ATION) ACTIVE 03/17/2025 [id number] CARLOS HEATON MD 2023 1 [facility] ALBUTEROL SO4 90MCG/ACTUA T (CFC-F) INHL,ORAL,8 .5GM INHALE 2 PUFFS BY ORAL INHALATI ON FOUR TIMES A DAY NEEDED FOR BREATHIN G. SHAKE WELL. RINSE MOUTHPIE CE FREQUENT LY TO PREVENT CLOGGING . RESPIR ATORY (INHAL ATION) DISCONT INUED 01/18/2024 [id number] CARLOS HEATON MD 2022 1 [facility] DIPHENHYDRA MINE CAP,ORAL TAKE BY MOUTH AT BEDTIME NEEDED ORAL ACTIVE CTAARINO LOPEZ R 2023 [facility] EMPAGLIFLOZ IN 25MG TAB TAKE ONE TABLET BY MOUTH ONCE A DAY ORAL ACTIVE 10/20/2024 [id number] 4 CATARINO LOPEZ R 2023 90 [facility] EMPAGLIFLOZ IN 25MG TAB TAKE ONE TABLET BY MOUTH ONCE A DAY ORAL DISCONT INUED 12/12/2023 [id number] 4 CARLOS HEATON MD 2023 90 [facility] EMPAGLIFLOZ IN 25MG TAB TAKE ONE TABLET BY MOUTH ONCE A DAY ORAL DISCONT INUED 01/19/2024 [id number] 4 CARLOS HEATON MD 2022 90 [facility] SIMVASTATIN 80MG TAB TAKE ONE-HALF TABLET BY MOUTH EVERY EVENING TO LOWER CHOLESTE ROL (REPORT ANY MUSCLE PAIN OR WEAKNESS ) ORAL ACTIVE 10/20/2024 [id number] CATARINO LOPEZ R 2023 45 [facility] SIMVASTATIN 80MG TAB TAKE ONE-HALF TABLET BY MOUTH EVERY EVENING TO LOWER CHOLESTE ROL (REPORT ANY MUSCLE PAIN OR WEAKNESS ) ORAL DISCONT INUED 10/20/2024 [id number] 4 CATARINO LOPEZ R 2023 45 [facility] SIMVASTATIN 80MG TAB TAKE ONE-HALF TABLET BY MOUTH EVERY EVENING TO LOWER CHOLESTE ROL (REPORT ANY MUSCLE PAIN OR WEAKNESS ) ORAL DISCONT INUED 01/01/2024 [id number] 4 CARLOS HEATON MD 2023 45 [facility] SIMVASTATIN 80MG TAB TAKE ONE-HALF TABLET BY MOUTH EVERY EVENING TO LOWER CHOLESTE ROL (REPORT ANY MUSCLE PAIN OR WEAKNESS ) ORAL DISCONT INUED 03/21/2024 [id number] 4 CARLOS HEATON MD 2022 45 [facility] SINUS RINSE NEILMED REGULAR KIT USE 1 KIT NOSTRIL( S) ONCE A DAY NASAL ACTIVE CATARINO LOPEZ BERTRAM Anne 2023 [facility] Immunizations Combined list of available immunizations from the Department of Defense and Veterans Affairs facilities. Immunization Series Date Given Administered By Site Reaction Lot Number CVX Code Drug Hand Cementer Status Comments Source COVID-19 (PFIZER), MRNA, LNP-S, PF, DUANE-SUCROSE, 30 MCG/0.3 ML (AGES 12+ YEARS) 1 2022 309 complet [facility] DIVISIO N INFLUENZA VACCINE, QUADRIVALENT, ADJUVANTED 1 2022 205 complet [facility] DIVISIO N ZOSTER RECOMBINANT 2 2022 187 complet [facility] DIVISIO N ZOSTER RECOMBINANT 1 2022 187 complet [facility] DIVISIO N COVID-19 (Readz), MRNA, LNP-S, BIVALENT, PF, 30 MCG/0.3 ML DOSE 5 2021 [facility], HIGH-DOSE, QUADRIVALENT 1 2021 197 [facility] COVID-19 (Readz), MRNA, LNP-S, PF, 30 MCG/0.3 ML DOSE, DUANE-SUCROSE (AGES 12+ YEARS) 4 2021 217 complet [facility] DIVISIO N INFLUENZA, HIGH-DOSE, QUADRIVALENT 2 2020 197 complet [facility] DIVISIO N INFLUENZA, HIGH-DOSE, QUADRIVALENT 1 2020 197 complet [facility] DIVISIO N COVID-19 (PFIZER), MRNA, LNP-S, PF, 30 MCG/0.3 ML DOSE 3 2020 208 complet ed [facility] N COVID-19 (PFIZER), MRNA, LNP-S, PF, 30 MCG/0.3 ML DOSE 2 2020 208 complet ed PFR; [id number]; 1 [facility] DIVISIO N COVID-19 (MODERNA), MRNA, LNP-S, PF, 100 MCG/0.5ML DOSE OR 50 MCG/0.25ML DOSE 2 2020 207 complet ed [facility] COVID-19 (PFIZER), MRNA, LNP-S, PF, 30 MCG/0.3 ML DOSE 1 2020 208 complet ed PFR; [id number]; 1 [facility] DIVISIO N COVID-19 (MODERNA), MRNA, LNP-S, PF, 100 MCG/0.5ML DOSE OR 50 MCG/0.25ML DOSE 1 2020 207 complet ed [facility] INFLUENZA, HIGH-DOSE, QUADRIVALENT 1 2019 197 complet ed [facility] INFLUENZA, UNSPECIFIED FORMULATION 2019 88 complet ed [facility] INFLUENZA, HIGH DOSE SEASONAL 1 2018 135 complet [facility], UNSPECIFIED FORMULATION 2017 88 complet ed [facility] PNEUMOCOCCAL CONJUGATE PCV 13 2 2017 133 complet ed [facility] N PNEUMOCOCCAL POLYSACCHARID E PPV23 1 2016 33 [facility], HIGH DOSE SEASONAL 1 2015 135 complet ed [facility] N INFLUENZA, SPLIT (INCL. PURIFIED SURFACE ANTIGEN) 1 2013 15 [facility] Results Combined list of recent chemistry, hematology and other laboratory results from Department of Defense and Veterans Affairs, ranging from 15 months to all on record, depending upon the facility. Order Name Results Value Reference Range Date Interpretation Specimen Comments Source LIPID PANEL (STL) CHOLESTEROL [MASS/VOLUM E] IN SERUM OR PLASMA 196 mg/dL 0 - 200 08/11 Specimen Type: PLASMA Comment: No hemolysis noted. Ordering Provider: MATT HEATON MD Report Released Date/Time: Aug 10, 2022 11:26 AM Reporting Lab: [facility] [address] [facility] [address] Performing Lab: [facility] [address] [facility] [address] [facility] LIPID PANEL (STL) TRIGLYCERID E [MASS/VOLUM E] IN SERUM OR PLASMA 102 mg/dL 0 - 150 08/11 Specimen Type: PLASMA Comment: No hemolysis noted. Ordering Provider: MATT HEATON MD Report Released Date/Time: Aug 10, 2022 11:26 AM Reporting Lab: [facility] [address] [facility] [address] Performing Lab: [facility] [address] [place] [phone] [facility] LIPID PANEL (STL) CHOLESTEROL IN LDL [MASS/VOLUM E] IN SERUM OR PLASMA BY CALCULATION 122 mg/dL 08/11 Specimen Type: PLASMA Comment: No hemolysis noted. Ordering Provider: MATT HEATON MD Report Released Date/Time: Aug 10, 2022 11:26 AM Reporting Lab: [facility] [address] [facility] [address] Performing Lab: [address] [address] [facility] LIPID PANEL (STL) CHOLESTEROL IN HDL [MASS/VOLUM E] IN SERUM OR PLASMA 54 mg/dL 40 08/11 Specimen Type: PLASMA Comment: No hemolysis noted. Ordering Provider: MATT HEATON MD Report Released Date/Time: Aug 10, 2022 11:26 AM Reporting Lab: [facility] [address] [facility] [address] Performing Lab: [facility] [address] [facility] [address] [facility] COMPREHENS AALIYAH METABOLIC PANEL CREATININE [MASS/VOLUM E] IN SERUM OR PLASMA 0.82 mg/dL 0.7 - 1.3 08/11 Specimen Type: PLASMA Comment: No hemolysis noted. Ordering Provider: MATT HEATON MD Report Released Date/Time: Aug 10, 2022 11:26 AM Reporting Lab: [place] [address] [facility] [address] Performing Lab: [address] [phone] [place] [address] COMPREHENS AALIYAH METABOLIC PANEL UREA NITROGEN [MASS/VOLUM E] IN SERUM OR PLASMA 16 mg/dL 9 - 25 08/11 Specimen Type: PLASMA Comment: No hemolysis noted. Ordering Provider: MATT HEATON MD Report Released Date/Time: Aug 10, 2022 11:26 AM Reporting Lab: [address] [address] Performing Lab: [place] [address] [facility] [address] [facility] COMPREHENS AALIYAH METABOLIC PANEL GLUCOSE [MASS/VOLUM E] IN SERUM OR PLASMA 118 mg/dL 72 - 99 08/11 H Specimen Type: PLASMA Comment: No hemolysis noted. Ordering Provider: MATT HEATON MD Report Released Date/Time: Aug 10, 2022 11:26 AM Reporting Lab: [facility] [address] Performing Lab: [address] [address] [facility] COMPREHENS AALIYAH METABOLIC PANEL SODIUM [MOLES/VOLU ME] IN SERUM OR PLASMA 142 meq/L 136 - 145 08/11 Specimen Type: PLASMA Comment: No hemolysis noted. Ordering Provider: MATT HEATON MD Report Released Date/Time: Aug 10, 2022 11:26 AM Reporting Lab: [facility] [address] [facility] [address] Performing Lab: [facility] [address] [facility] [address] [facility] COMPREHENS AALIYAH METABOLIC PANEL POTASSIUM [MOLES/VOLU ME] IN SERUM OR PLASMA 5.3 meq/L 3.5 - 5 08/11 H Specimen Type: PLASMA Comment: No hemolysis noted. Ordering Provider: MATT HEATON MD Report Released Date/Time: Aug 10, 2022 11:26 AM Reporting Lab: [facility] [address] [facility] [address] Performing Lab: [facility] [address] [facility] [phone] [place] [address] COMPREHENS AALIYAH METABOLIC PANEL CHLORIDE [MOLES/VOLU ME] IN SERUM OR PLASMA 108 meq/L 98 - 107 08/11 H Specimen Type: PLASMA Comment: No hemolysis noted. Ordering Provider: MATT HEATON MD Report Released Date/Time: Aug 10, 2022 11:26 AM Reporting Lab: [facility] [address] [facility] [address] Performing Lab: [facility] [address] [facility] [address] [facility] COMPREHENS AALIYAH METABOLIC PANEL CARBON DIOXIDE, TOTAL [MOLES/VOLU ME] IN SERUM OR PLASMA 24 meq/L 22 - 31 08/11 Specimen Type: PLASMA Comment: No hemolysis noted. Ordering Provider: MATT HEATON MD Report Released Date/Time: Aug 10, 2022 11:26 AM Reporting Lab: [facility] [address] [facility] [address] Performing Lab: [facility] [address] [facility] [address] [facility] COMPREHENS AALIYAH METABOLIC PANEL CALCIUM [MASS/VOLUM E] IN SERUM OR PLASMA 9.4 mg/dL 8.4 - 10.4 08/11 Specimen Type: PLASMA Comment: No hemolysis noted. Ordering Provider: MATT HEATON MD Report Released Date/Time: Aug 10, 2022 11:26 AM Reporting Lab: [facility] [address] [facility] [address] Performing Lab: [phone] [place] [address] COMPREHENS AALIYAH METABOLIC PANEL PROTEIN [MASS/VOLUM E] IN SERUM OR PLASMA 7.0 g/dL 6 - 8.6 08/11 Specimen Type: PLASMA Comment: No hemolysis noted. Ordering Provider: MATT HEATON MD Report Released Date/Time: Aug 10, 2022 11:26 AM Reporting Lab: [place] [address] [facility] [address] Performing Lab: [address] [phone] [place] [address] COMPREHENS AALIYAH METABOLIC PANEL ALBUMIN [MASS/VOLUM E] IN SERUM OR PLASMA 4.4 g/dL 3.4 - 5 08/11 Specimen Type: PLASMA Comment: No hemolysis noted. Ordering Provider: MATT HEATON MD Report Released Date/Time: Aug 10, 2022 11:26 AM Reporting Lab: [address] [address] Performing Lab: [address] [address] [facility] COMPREHENS AALIYAH METABOLIC PANEL BILIRUBIN.T OTAL [MASS/VOLUM E] IN SERUM OR PLASMA 0.6 mg/dL 0.2 - 1.2 08/11 Specimen Type: PLASMA Comment: No hemolysis noted. Ordering Provider: MATT HEATON MD Report Released Date/Time: Aug 10, 2022 11:26 AM Reporting Lab: [address] [address] Performing Lab: [address] [place] [address] [facility] COMPREHENS AALIYAH METABOLIC PANEL ALKALINE PHOSPHATASE [ENZYMATIC ACTIVITY/VO LUME] IN SERUM OR PLASMA 64 U/L 40 - 150 08/11 Specimen Type: PLASMA Comment: No hemolysis noted. Ordering Provider: MATT HEATON MD Report Released Date/Time: Aug 10, 2022 11:26 AM Reporting Lab: [address] [address] Performing Lab: [address] [address] [facility] COMPREHENS AALIYAH METABOLIC PANEL ASPARTATE AMINOTRANSF ERASE [ENZYMATIC ACTIVITY/VO LUME] IN SERUM OR PLASMA 25 U/L 5 - 34 08/11 Specimen Type: PLASMA Comment: No hemolysis noted. Ordering Provider: MATT HEATON MD Report Released Date/Time: Aug 10, 2022 11:26 AM Reporting Lab: [facility] [address] [place] [address] Performing Lab: [address] [address] [facility] COMPREHENS AALIYAH METABOLIC PANEL ALANINE AMINOTRANSF ERASE [ENZYMATIC ACTIVITY/VO LUME] IN SERUM OR PLASMA 21 U/L 8 - 40 08/11 Specimen Type: PLASMA Comment: No hemolysis noted. Ordering Provider: MATT HEATON MD Report Released Date/Time: Aug 10, 2022 11:26 AM Reporting Lab: [facility] [address] [place] [phone] Performing Lab: [address] [address] [facility] COMPREHENS AALIYAH METABOLIC PANEL GLOMERULAR FILTRATION RATE/1.73 SQ M.PREDICTED [VOLUME RATE/AREA] IN SERUM, PLASMA OR BLOOD BY CREATININE- BASED FORMULA (CKD-EPI 2020) 93.9 <60 - 60 08/11 Specimen Type: PLASMA Comment: No hemolysis noted. Ordering Provider: MATT HEATON MD Report Released Date/Time: Aug 10, 2022 11:26 AM Reporting Lab: [facility] [address] [place] [address] Performing Lab: [address] [phone] [place] [address] HGA1C HEMOGLOBIN A1C/HEMOGLO BIN.TOTAL IN BLOOD 7.5 4.0 - 6.0 08/11 H Specimen Type: BLOOD No comment entered. Ordering Provider: MATT HEATON MD Report Released Date/Time: Aug 10, 2022 11:26 AM Reporting Lab: [address] [address] Performing Lab: [address] [phone] [place] [address] PROST. SPECIFIC AG.(PB-STL ) PROSTATE SPECIFIC AG [MASS/VOLUM E] IN SERUM OR PLASMA 1.178 ng/mL 0 - 4 08/11 Specimen Type: SERUM Comment: The listed sex of this patient may not be a typical indication for this test. Therefore, reference ranges or interpretive criteria listed may not be valid. Clinical correlation suggested. Ordering Provider: MATT HEATON MD Report Released Date/Time: Aug 10, 2022 11:26 AM Reporting Lab: [address] [address] Performing Lab: [address] [phone] [place] [address] CBC LEUKOCYTES [#/VOLUME] IN BLOOD BY AUTOMATED COUNT 6.0 10*3/u L 3.6 - 11.2 08/11 Specimen Type: BLOOD No comment entered. Ordering Provider: MATT HEATON MD Report Released Date/Time: Aug 10, 2022 11:26 AM Reporting Lab: [address] [address] Performing Lab: [address] [address] [facility] CBC ERYTHROCYTE S [#/VOLUME] IN BLOOD BY AUTOMATED COUNT 5.01 10*6/u L 4.10 - 5.70 08/11 Specimen Type: BLOOD No comment entered. Ordering Provider: MATT HEATON MD Report Released Date/Time: Aug 10, 2022 11:26 AM Reporting Lab: [address] [address] Performing Lab: [address] [phone] [place] [address] CBC HEMOGLOBIN [MASS/VOLUM E] IN BLOOD 15.5 g/dL 13.1 - 16.8 08/11 Specimen Type: BLOOD No comment entered. Ordering Provider: MATT HEATON MD Report Released Date/Time: Aug 10, 2022 11:26 AM Reporting Lab: [address] [address] Performing Lab: [address] [phone] [place] [address] CBC HEMATOCRIT [VOLUME FRACTION] OF BLOOD 46.6 38.2 - 48.4 08/11 Specimen Type: BLOOD No comment entered. Ordering Provider: MATT HEATON MD Report Released Date/Time: Aug 10, 2022 11:26 AM Reporting Lab: [address] [address] Performing Lab: [address] [address] [facility] CBC MCV [ENTITIC VOLUME] BY AUTOMATED COUNT 93.0 fL 80.0 - 100.0 08/11 Specimen Type: BLOOD No comment entered. Ordering Provider: MATT HEATON MD Report Released Date/Time: Aug 10, 2022 11:26 AM Reporting Lab: [address] [address] Performing Lab: [address] [address] [facility] CBC MCH [ENTITIC MASS] BY AUTOMATED COUNT 30.9 pg 27.0 - 34.0 08/11 Specimen Type: BLOOD No comment entered. Ordering Provider: MATT HEATON MD Report Released Date/Time: Aug 10, 2022 11:26 AM Reporting Lab: [address] [address] Performing Lab: [address] [address] [facility] CBC MCHC [MASS/VOLUM E] BY AUTOMATED COUNT 33.3 g/dL 33.0 - 36.0 08/11 Specimen Type: BLOOD No comment entered. Ordering Provider: MATT HEATON MD Report Released Date/Time: Aug 10, 2022 11:26 AM Reporting Lab: [address] [address] Performing Lab: [address] [address] [facility] CBC PLATELETS [#/VOLUME] IN BLOOD BY AUTOMATED COUNT 235 10*3/u L 150 - 400 08/11 Specimen Type: BLOOD No comment entered. Ordering Provider: MATT HEATON MD Report Released Date/Time: Aug 10, 2022 11:26 AM Reporting Lab: [address] [address] Performing Lab: [address] [address] [facility] CBC PLATELET MEAN VOLUME [ENTITIC VOLUME] IN BLOOD BY AUTOMATED COUNT 10.4 fL 7.5 - 11.2 08/11 Specimen Type: BLOOD No comment entered. Ordering Provider: MATT HEATON MD Report Released Date/Time: Aug 10, 2022 11:26 AM Reporting Lab: [address] [address] Performing Lab: [address] [address] [facility] CBC ERYTHROCYTE DISTRIBUTIO N WIDTH [RATIO] BY AUTOMATED COUNT 12.8 11.8 - 15.1 08/11 Specimen Type: BLOOD No comment entered. Ordering Provider: MATT HEATON MD Report Released Date/Time: Aug 10, 2022 11:26 AM Reporting Lab: [facility] [address] [place] [phone] Performing Lab: [facility] [address] [facility] [address] [facility] CBC LYMPHOCYTES /100 LEUKOCYTES IN BLOOD BY AUTOMATED COUNT 26 08/11 Specimen Type: BLOOD No comment entered. Ordering Provider: MATT HEATON MD Report Released Date/Time: Aug 10, 2022 11:26 AM Reporting Lab: [facility] [address] [facility] [address] Performing Lab: [facility] [address] [facility] [address] [facility] CBC MONOCYTES/1 00 LEUKOCYTES IN BLOOD BY AUTOMATED COUNT 10 08/11 Specimen Type: BLOOD No comment entered. Ordering Provider: MATT HEATON MD Report Released Date/Time: Aug 10, 2022 11:26 AM Reporting Lab: [facility] [address] [facility] [address] Performing Lab: [facility] [address] [facility] [address] [facility] CBC NEUTROPHILS /100 LEUKOCYTES IN BLOOD BY AUTOMATED COUNT 58 08/11 Specimen Type: BLOOD No comment entered. Ordering Provider: MATT HEATON MD Report Released Date/Time: Aug 10, 2022 11:26 AM Reporting Lab: [facility] [address] [facility] [address] Performing Lab: [facility] [address] [facility] [address] [facility] CBC EOSINOPHILS /100 LEUKOCYTES IN BLOOD BY AUTOMATED COUNT 5 08/11 Specimen Type: BLOOD No comment entered. Ordering Provider: MATT HEATON MD Report Released Date/Time: Aug 10, 2022 11:26 AM Reporting Lab: [facility] [address] [place] [phone] Performing Lab: [facility] [address] [place] [phone] [place] [address] CBC BASOPHILS/1 00 LEUKOCYTES IN BLOOD BY AUTOMATED COUNT 1 08/11 Specimen Type: BLOOD No comment entered. Ordering Provider: MATT HEATON MD Report Released Date/Time: Aug 10, 2022 11:26 AM Reporting Lab: [address] [address] Performing Lab: [address] [phone] CBC LYMPHOCYTES [#/VOLUME] IN BLOOD BY AUTOMATED COUNT 1.55 10*3/u L 0.77 - 4.50 08/11 Specimen Type: BLOOD No comment entered. Ordering Provider: MATT HEATON MD Report Released Date/Time: Aug 10, 2022 11:26 AM Reporting Lab: [facility] [address] [place] [phone] Performing Lab: [facility] [address] [place] [phone] [place] [address] CBC MONOCYTES [#/VOLUME] IN BLOOD BY AUTOMATED COUNT 0.62 10*3/u L 0.19 - 1.50 08/11 Specimen Type: BLOOD No comment entered. Ordering Provider: MATT HEATON MD Report Released Date/Time: Aug 10, 2022 11:26 AM Reporting Lab: [facility] [address] [place] [phone] Performing Lab: [facility] [address] [place] [phone] [place] [address] CBC NEUTROPHILS [#/VOLUME] IN BLOOD BY AUTOMATED COUNT 3.45 10*3/u L 2.10 - 8.00 08/11 Specimen Type: BLOOD No comment entered. Ordering Provider: MATT HEATON MD Report Released Date/Time: Aug 10, 2022 11:26 AM Reporting Lab: [place] [address] Performing Lab: [address] [phone] CBC EOSINOPHILS [#/VOLUME] IN BLOOD BY AUTOMATED COUNT 0.29 10*3/u L 0.00 - 0.60 08/11 Specimen Type: BLOOD No comment entered. Ordering Provider: MATT HEATON MD Report Released Date/Time: Aug 10, 2022 11:26 AM Reporting Lab: [address] [address] Performing Lab: [address] CBC BASOPHILS [#/VOLUME] IN BLOOD BY AUTOMATED COUNT 0.05 10*3/u L 0.00 - 0.20 08/11 Specimen Type: BLOOD No comment entered. Ordering Provider: MATT HEATON MD Report Released Date/Time: Aug 10, 2022 11:26 AM Reporting Lab: [address] [address] Performing Lab: [phone] [place] [address] MICRAL/CRE AT PROFILE (STL) ALBUMIN [MASS/VOLUM E] IN URINE <5.0mg /L 08/11 Specimen Type: URINE Comment: uALB/CREAT Ratio Unable to be calculated Unable to calculate due to Microalbumin < 5.0 mg/L Ordering Provider: MATT HEATON MD Report Released Date/Time: Aug 10, 2022 11:26 AM Reporting Lab: [address] [phone] Performing Lab: [address] [place] [address] [facility] MICRAL/CRE AT PROFILE (STL) ALBUMIN/CRE ATININE [MASS RATIO] IN URINE commen tug/mL <20 - 20 08/11 Specimen Type: URINE Comment: uALB/CREAT Ratio Unable to be calculated Unable to calculate due to Microalbumin < 5.0 mg/L Ordering Provider: MATT HEATON MD Report Released Date/Time: Aug 10, 2022 11:26 AM Reporting Lab: [facility] [address] [place] [id number] Performing Lab: [address] [phone] [place] [address] MICRAL/CRE AT PROFILE (STL) CREATININE [MASS/VOLUM E] IN URINE 80.5 mg/dL 63 - 166 08/11 Specimen Type: URINE Comment: uALB/CREAT Ratio Unable to be calculated Unable to calculate due to Microalbumin < 5.0 mg/L Ordering Provider: MATT HEATON MD Report Released Date/Time: Aug 10, 2022 11:26 AM Reporting Lab: [address] [id number] Performing Lab: [address] [id number] [place] [address] Vital Signs Combined list of inpatient and outpatient Vital Signs from Department of Defense and Veterans Affairs, ranging from 12 months to all on record, depending upon the facility. Vital Sign Value Date Comments Source SYSTOLIC BLOOD PRESSURE 168 10/20/2023 14:44:04 [facility] DIASTOLIC BLOOD PRESSURE 74 10/20/2023 14:44:04 [facility] PULSE OXIMETRY 96 10/20/2023 14:44:04 [facility] WEIGHT 206.2 10/20/2023 14:44:04 [facility] BMI 29kg/m2 10/20/2023 14:44:04 [facility] PAIN 0 10/20/2023 14:44:04 [facility] HEIGHT 71 10/20/2023 14:44:04 [facility] TEMPERATURE 97.9 10/20/2023 14:44:04 Ehsan RUBEN [facility] PULSE 74 10/20/2023 14:44:04 ST. Jessica QUIÑONEZ [facility] RESPIRATION 18 10/20/2023 14:44:04 Ehsan RUBEN [facility] Encounters Combined list of: 1) Encounters from Department of [facility] Affairs facilities going back up to thelast 18 months. 2) Encounters from the Department of [facility] facilities going back up to 280 months. Location Location Details Encounter Type Encounter Number Reason For Visit Attending Provider ADM Date DC Date Status Disposition Source [facility] Outpatient Encounter [id number] 03/22 [facility] Outpatient Encounter [id number] 09/13 [facility] Outpatient Encounter [id number] BASILIO SEPULVEDA L 09/14 [facility] Outpatient Encounter [id number] 10/[address] [facility] FUNDUS PHOTOGRAPH Y W/I&R [id number] Diagnos is: ICD-10- CM Z13.5 Encount er for screeni ng for eye and ear disorde rs
JOSHUA MANUEL 10/19 [facility] Outpatient Encounter [id number] Diagnos is: ICD-10- CM Z00.00 Encntr for general adult medical exam w/o abnorma l finding s
YEE LOPEZ 10/19 [facility] IMG RTA DETC/MNTR DS PHY/QHP [id number] Diagnos is: ICD-10- CM Z13.5 Encount er for screeni ng for eye and ear disorde rs
MARCO AJOSE DE JESUS Hughes 10/19 [facility] Outpatient Encounter [id number] 01/25 [facility] Social History Combined list of available smoking, tobacco, and other social history from Department of Defense and [facility] facilities. Social History Type Response Date Comment Sourc e Tobacco smoking status NHIS VA-TOBACCO FORMER USER 10/20/2023 [facility] History of tobacco use MD-TOBACCO QUIT 1 5 YRS OR MORE 10/20/2023 [facility] History of tobacco use MD-TOBACCO FORMER USER 09/07/2018 [facility] Plan of Care List of future care activities from Department of [facility] facilities. Additional future care activities may be listed in the Assessment and Plan section. Date/Time Care Activity Care Activity Detail Facili ty 10/23/2024 AMBULATORY - MEDICINE AMBULATORY - MEDICI NE [facility]
--- OUTSIDE RECORDS SUMMARY | 2024-07-25 15:44 | XMS_ITS | Encounter Summary ---
Author Organization [facility] Address [address] [place] [address] Care Team Providers Care Infantryman Name Role Phone Unavailable Primary Care Provider Unavailabl e Encounter Details Date Type Department Care Team (Late st Contact Info) Description 08/09/2005 Outpatient Historical 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 Gender Identity Not on file Sexual Orientation Not on file documented as of this encounter Last Filed Vital Signs Vital Sign Reading Time Taken Comments Blood Pressure 140/90 08/09/2005 12:00 PM ROLLER PNEUMATIC Pulse - - Temperature 36.4 C (97.52 F) 08/09/2005 12:00 PM ROLLER PNEUMATIC Respiratory Rate - - Oxygen Saturation - - Inhaled Oxygen Concentration - - Weight 98.9 kg (218 lb) 08/09/2005 12:00 PM ROLLER PNEUMATIC Height 180.3 cm (5' 11 ) 08/09/2005 12:00 PM ROLLER PNEUMATIC Body Mass Index 30.4 08/09/2005 12:00 PM ROLLER PNEUMATIC documented in this encounter Plan of Treatment Not on file documented as of this encounter Visit Diagnoses Not on filedocumented in this encounter
--- OUTSIDE RECORDS SUMMARY | 2024-07-25 15:44 | XMS_ITS | Encounter Summary ---
Author Organization [facility] Address 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 HISTORY: HISTORY: 466.0-BRONCHITIS ACUTE x q week cough josh, colored sputum 272.4-HYPERLIPIDEMIA off med, did not fu 305.1-TOBACCO ABUSE quit 1 mo ago ROS: GENERAL: Normal activity and energy level, no change in appetite. No major weight gain or loss. No malaise, chills, fever, diaphoresis. ALLERGIC/IMMUNOLOGIC: No hay fever or history of environmental allergies. No chronic problems with immunity. EYES: No vision changes or diplopia. ENT: NASAL CONGESTION PRESENT, COMPLAINS OF HOARSENESS, COMPLAINS OF A SORE THROAT. ENDOCRINE: No heat or cold intolerance, no excessive thirst. CARDIAC: No chest pain, palpitations, orthopnea, dyspnea on exertion, or paroxysmal nocturnal dyspnea. RESPIRATORY: HAS A COUGH. SKIN/BREAST/CHEST: No rashes or non-healing lesions. No breast symptoms noted. HEMATOLOGIC/LYMPHATIC: No anemia, easy bruising, bleeding or swollen nodes. : No dysuria or hematuria. GI: No abdominal pain, nausea, vomiting, diarrhea, constipation, melena, or hematochezia. NEUROLOGIC: No weakness, dizziness, loss of consciousness, transient ischemic symptoms, or seizures. MUSCULOSKELETAL: No muscle or joint pain, weakness, swelling or inflammation. No restriction of motion, no atrophy or backache. PSYCHIATRIC: No increased nervousness, mood changes or depression. Coping well. PAST MEDICAL HISTORY: MEDICAL: Hypercholesterolemia. 2004 SURGICAL: [...] several years ago. 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 CAFFEINE: A minimal amount of caffeinated beverages daily. EXERCISES: The patient is not exercising regularly. DIET: Follows no specific diet. SAFETY ISSUES: Uses seat belts. PHYSICAL EXAMINATION: CONSTITUTIONAL: GENERAL APPEARANCE: Healthy appearing patient in no distress. EARS, NOSE, MOUTH AND THROAT: EARS: EFFUSION PRESENT BILATERALLY. NECK/THYROID: Trachea midline. No thyroid enlargement, tenderness, or mass. No supraclavicular or cervical adenopathy. RESPIRATORY: RALES ON THE RIGHT. CARDIOVASCULAR: CARDIAC: Regular rhythm. No murmurs, rubs, or gallops. ARTERIAL: Aortic pulses of normal amplitude with no bruits. EDEMA/VARICOSITIES OF EXTREMITIES: No edema or varicosities. GASTROINTESTINAL: ABDOMEN: Soft, non-tender, without masses. Bowel sounds active. LIVER/SPLEEN/KIDNEY: No hepatosplenomegaly, tenderness or nodularity. Kidneys not palpable. ASSESSMENT/PLAN: 272.4-HYPERLIPIDEMIA discussed,. recheck likely needs start med 466.0-BRONCHITIS ACUTE probable pneumonia, return if sx worsen MEDICATIONS: LEVAQUIN ORAL TABLET 500 MG, 1 Every Day, 10 Dispensed, status: NEW PRESCRIPTION, 08/09/2005. ALBUTEROL INHALATION AEROSOL SOLUTION 90 MCG/ACT, 2 Four Times A Day, As Needed, 1 Dispensed, status: NEW PRESCRIPTION, 08/09/2005. LAB ORDERS: Order number: [id number] Test Ordered: CHEST XRAY StA,[place] today lab for 1 mo Order number: [id number] Test Ordered: LIPID PANEL 7600 Order number: [id number] Test Ordered: TSH 899 Order number: [id number] Test Ordered: COMPREHENSIVE METABOLIC PANEL W/ GLOMERULAR FILTRATION RATE, ESTIMATED (EGFR) [id number] Order number: [id number] Test Ordered: PSA 5363 796.2-BLOOD PRESSURE ELEVATED W/O DX OF HTN recheck at fu 602.9-OTHER DISORDERS OF PROSTATE check psa, exam at fu PREVENTIVE COUNSELING The patient was counseled regarding colorectal cancer screening. colonoscopy-- pt wants to wait RETURN VISIT : Patient instructed to return in 1 month. Electronically Signed by: Nik Winn MD on Tuesday, August 09, 2005 documented in this encounter Plan of Treatment Not on file documented as of this encounter Visit Diagnoses Not on filedocumented in this encounter
== END 2024-07-25 15:09 | disposition home or self-care (01) ==
PROVIDERS: PCP Internal Medicine; Visit Provider Internal Medicine
DX: R07.89 Other chest pain (principal)
CPT/HCPCS: 71046; 71100

== ENCOUNTER 2024-07-27 07:40 | Outpatient (CLI) | payer MEDICARE, SELFPAY ==
--- NOTE | ~2024-07-27 | CT_ITS ---
EXAMINATION: CT abdomen pelvis w con DATE: 07/27/2024 09:03 INDICATION: Left kidney neoplasm. Left upper quadrant abdominal pain. TECHNIQUE: Computed tomography (CT) of the abdomen and pelvis was performed with 100 mL Omnipaque 350 intravenous contrast. Automated exposure control and iterative reconstruction technique were employe d. The dose-length product was 744.63 mGy-cm. COMPARISON: CT abdomen and pelvis 09/04/21 FINDINGS: The visualized portions of lung bases demonstrate mild atelectasis. Emphysema is noted. No pleural effusion. The heart size is normal. No pericardial effusion. The liver, gallbladder, and adre nal glands are normal. Calcifications in the spleen are consistent with old granulomatous disease. Th ere are cysts in the kidneys measuring up to 4.0 cm on the left. The prostate is moderately enlarged. There are bilateral inguinal hernias containing fat. There are no dilated loops of bowel. The append ix is not visualized. There are no pathologically enlarged lymph nodes. There is no free intraperiton eal fluid. There is mild thoracic and lumbar spondylosis. IMPRESSION: 1. Benign cysts in the kidneys. Reviewed, dictated and finalized at location A. 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
--- OUTSIDE RECORDS SUMMARY | 2024-07-27 07:46 | XMS_ITS | Encounter Summary ---
Author Organization [facility] Address 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 [...] NEW PRESCRIPTION, 08/09/2005. LAB ORDERS: Order number: [id number] Test Ordered: CHEST XRAY StA,[place] today lab for 1 mo Order number: [id number] Test Ordered: LIPID PANEL 7600 Order number: [id number] Test Ordered: TSH 899 Order number: [id number] Test Ordered: COMPREHENSIVE METABOLIC PANEL W/ GLOMERULAR FILTRATION RATE, ESTIMATED (EGFR) [id number] Order number: [id number] Test Ordered: PSA 5363 796.2-BLOOD PRESSURE ELEVATED [...]
--- OUTSIDE RECORDS SUMMARY | 2024-07-27 07:46 | XMS_ITS | Encounter Summary ---
Author Organization [facility] Address 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
--- OUTSIDE RECORDS SUMMARY | 2024-07-27 07:46 | XMS_ITS | Encounter Summary ---
Author Organization [facility] Address 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
--- OUTSIDE RECORDS SUMMARY | 2024-07-27 07:46 | XMS_ITS | Clinical Summary ---
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 [employer] Gender Identity Not on file Sexual Orientation Not on file Last Filed Vital Signs Vital Sign Reading Time Taken Comments Blood Pressure 140/90 08/09/2005 12:00 PM [employer] Pulse - - Temperature 36.4 C (97.52 F) 08/09/2005 12:00 PM [employer] Respiratory Rate - - Oxygen Saturation - - Inhaled Oxygen Concentration - - Weight 98.9 kg (218 lb) 08/09/2005 12:00 PM [employer] Height 180.3 cm (5' 11 ) 08/09/2005 12:00 PM [employer] Body Mass Index 30.4 08/09/2005 12:00 PM [employer] Plan of Treatment Health Maintenance Due Date [...]
--- OUTSIDE RECORDS SUMMARY | 2024-07-27 07:46 | XMS_ITS | Continuity of Care Document ---
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 It does not include entries that were removed or entered in error. Problem Status Onset Date Problem Type Date of Resolution Comments Source Allergic rhinitis Active Condition [facility] COPD - Chronic Obstructive Pulmonary Disease ([facility] [id number]) Active Condition [facility] Diabetes Mellitus Type 2 ([facility] [id number]) Active Condition [facility] Exposure to potentially hazardous substance ([facility] [id number]) Active Condition October 20 Entered By: KENNETH QUINTERO Comment: Entered automatically through IVAN Problem List documentation program [facility] Hyperlipidemia ([facility] [id number]) Active Condition [facility] Diagnosis: ICD-10-CM Z13.5 Encounter for screening for eye and ear disorders Active Diagnosis [facility] Diagnosis: ICD-10-CM Z00.00 Encntr for general adult medical exam w/o abnormal findings Active Diagnosis [facility] Medications Combined list of outpatient medications from [facility] facilities.Medications provided include 1) outpatient medications from [...] . RESPIR ATORY (INHAL ATION) ACTIVE 03/17/2025 [id number] CARLOS HEATON MD 2023 1 [facility] ALBUTEROL SO4 90MCG/ACTUA T (CFC-F) INHL,ORAL,8 .5GM INHALE 2 PUFFS BY ORAL INHALATI ON FOUR TIMES A DAY NEEDED FOR BREATHIN G. SHAKE WELL. RINSE MOUTHPIE CE FREQUENT LY TO PREVENT CLOGGING . RESPIR ATORY (INHAL ATION) DISCONT INUED 01/18/2024 [id number] CARLOS HEATON MD 2022 1 [facility] DIPHENHYDRA MINE CAP,ORAL TAKE BY MOUTH AT BEDTIME NEEDED ORAL ACTIVE CATARINO LOPEZ R 2023 [facility] EMPAGLIFLOZ IN 25MG TAB TAKE ONE TABLET BY MOUTH ONCE A DAY ORAL ACTIVE 10/20/2024 [id number] 4 CATARINO LOPEZ R 2023 90 [facility] EMPAGLIFLOZ IN 25MG TAB TAKE ONE TABLET BY MOUTH ONCE A DAY ORAL DISCONT INUED 12/12/2023 [id number] 4 CARLOS HEATON MD 2023 90 [facility] EMPAGLIFLOZ IN 25MG TAB TAKE ONE TABLET BY MOUTH ONCE A DAY ORAL DISCONT INUED 01/19/2024 [id number] 4 CARLOS HEATON MD 2022 90 [facility] SIMVASTATIN 80MG TAB TAKE ONE-HALF TABLET BY MOUTH EVERY EVENING TO LOWER CHOLESTE ROL (REPORT ANY MUSCLE PAIN OR WEAKNESS ) ORAL ACTIVE 10/20/2024 [id number] CATARINO LOPEZ R 2023 45 [facility] SIMVASTATIN 80MG TAB TAKE ONE-HALF TABLET BY MOUTH EVERY EVENING TO LOWER CHOLESTE ROL (REPORT ANY MUSCLE PAIN OR WEAKNESS ) ORAL DISCONT INUED 10/20/2024 [id number] 4 CATARINO LOPEZ R 2023 45 [facility] SIMVASTATIN 80MG TAB TAKE ONE-HALF TABLET BY MOUTH EVERY EVENING TO LOWER CHOLESTE ROL (REPORT ANY MUSCLE PAIN OR WEAKNESS ) ORAL DISCONT INUED 01/01/2024 [id number] 4 CARLOS HEATON MD 2023 45 [facility] SIMVASTATIN 80MG TAB TAKE ONE-HALF TABLET BY MOUTH EVERY EVENING TO LOWER CHOLESTE ROL (REPORT ANY MUSCLE PAIN OR WEAKNESS ) ORAL DISCONT INUED 03/21/2024 [id number] 4 CARLOS HEATON MD 2022 45 [facility] SINUS RINSE NEILMED REGULAR KIT USE 1 KIT NOSTRIL( S) ONCE A DAY NASAL ACTIVE CATARINO LOPEZ BERTRAM Anne 2023 [facility] Immunizations Combined list of available immunizations from the Department of Defense and Veterans Affairs facilities. Immunization Series Date Given Administered By Site Reaction Lot Number CVX Code Drug Color Expert Status Comments Source COVID-19 (PFIZER), MRNA, LNP-S, PF, DUANE-SUCROSE, 30 MCG/0.3 ML (AGES 12+ YEARS) [address] [facility] DIVISIO N INFLUENZA VACCINE, QUADRIVALENT, ADJUVANTED [address] [facility] DIVISIO N ZOSTER RECOMBINANT [address] [facility] DIVISIO N ZOSTER RECOMBINANT [address] [facility] DIVISIO N COVID-19 ([employer]), MRNA, LNP-S, BIVALENT, PF, 30 MCG/0.3 ML DOSE 5 2021 [facility], HIGH-DOSE, QUADRIVALENT 1 2021 [facility] COVID-[facility] ([employer]), MRNA, LNP-S, PF, 30 MCG/0.3 ML DOSE, DUANE-SUCROSE (AGES 12+ YEARS) 4 2021 217 complet [facility] DIVISIO N INFLUENZA, HIGH-DOSE, QUADRIVALENT [address] [facility] DIVISIO N INFLUENZA, HIGH-DOSE, QUADRIVALENT [address] [facility] DIVISIO N COVID-19 (PFIZER), MRNA, LNP-S, PF, 30 MCG/0.3 ML DOSE 3 2020 208 complet ed [facility] COVID-19 (PFIZER), MRNA, LNP-S, PF, 30 MCG/0.3 ML DOSE 2 2020 208 complet ed PFR; [id number]; 1 [facility] DIVISIO N COVID-19 ([employer]), MRNA, LNP-S, PF, 100 MCG/0.5ML DOSE OR 50 MCG/0.25ML DOSE 2 2020 207 complet ed [facility] COVID-19 (PFIZER), MRNA, LNP-S, PF, 30 MCG/0.3 ML DOSE 1 2020 208 complet ed PFR; [id number]; 1 [facility] DIVISIO N COVID-19 (MODERNA), MRNA, LNP-S, PF, 100 MCG/0.5ML DOSE OR 50 MCG/0.25ML DOSE 1 2020 207 complet ed [facility] INFLUENZA, HIGH-DOSE, QUADRIVALENT 1 2019 197 complet ed [facility] INFLUENZA, UNSPECIFIED FORMULATION 2019 88 complet ed [facility] INFLUENZA, HIGH DOSE SEASONAL 1 2018 135 complet [facility], UNSPECIFIED FORMULATION 2017 88 complet ed [place] [facility] PNEUMOCOCCAL CONJUGATE PCV 13 2 2017 133 complet ed [facility] N PNEUMOCOCCAL POLYSACCHARID E PPV23 1 2016 33 complet ed [facility] IN[facility], HIGH DOSE SEASONAL 1 2015 135 complet ed [facility] N INFLUENZA, SPLIT (INCL. PURIFIED SURFACE ANTIGEN) 1 2013 15 complet ed [facility] Results Combined list of recent chemistry, [...] Aug 10, 2022 11:26 AM Reporting Lab: [facility] [address] [facility] [address] Performing Lab: [facility] [address] [facility] [address] [facility] LIPID PANEL (STL) TRIGLYCERID E [MASS/VOLUM E] IN SERUM OR PLASMA 102 mg/dL 0 - 150 08/11 Specimen Type: PLASMA Comment: No hemolysis noted. Ordering Provider: MATT HEATON MD Report Released Date/Time: Aug 10, 2022 11:26 AM Reporting Lab: [facility] [address] [facility] [address] Performing Lab: [facility] [address] [place] [phone] [facility] LIPID PANEL (STL) CHOLESTEROL IN LDL [MASS/VOLUM E] IN SERUM OR PLASMA BY CALCULATION 122 mg/dL 08/11 Specimen Type: PLASMA Comment: No hemolysis noted. Ordering Provider: MATT HEATON MD Report Released Date/Time: Aug 10, 2022 11:26 AM Reporting Lab: [facility] [address] [facility] [address] Performing Lab: [address] [address] [facility] LIPID PANEL (STL) CHOLESTEROL IN HDL [MASS/VOLUM E] IN SERUM OR PLASMA 54 mg/dL 40 08/11 Specimen Type: PLASMA Comment: No hemolysis noted. Ordering Provider: MATT HEATON MD Report Released Date/Time: Aug 10, 2022 11:26 AM Reporting Lab: [facility] [address] [facility] [address] Performing Lab: [facility] [address] [facility] [address] [facility] COMPREHENS AALIYAH METABOLIC PANEL CREATININE [MASS/VOLUM E] IN SERUM OR PLASMA 0.82 mg/dL 0.7 - 1.3 08/11 Specimen Type: PLASMA Comment: No hemolysis noted. Ordering Provider: MATT HEATON MD Report Released Date/Time: Aug 10, 2022 11:26 AM Reporting Lab: [place] [address] [facility] [address] Performing Lab: [address] [phone] [place] [address] COMPREHENS AALIYAH METABOLIC PANEL UREA NITROGEN [MASS/VOLUM E] IN SERUM OR PLASMA 16 mg/dL 9 - 25 08/11 Specimen Type: PLASMA Comment: No hemolysis noted. Ordering Provider: MATT HEATON MD Report Released Date/Time: Aug 10, 2022 11:26 AM Reporting Lab: [address] [address] Performing Lab: [place] [address] [facility] [address] [facility] COMPREHENS AALIYAH METABOLIC PANEL GLUCOSE [MASS/VOLUM E] IN SERUM OR PLASMA 118 mg/dL 72 - 99 08/11 H Specimen Type: PLASMA Comment: No hemolysis noted. Ordering Provider: MATT HEATON MD Report Released Date/Time: Aug 10, 2022 11:26 AM Reporting Lab: [facility] [address] Performing Lab: [address] [address] [facility] COMPREHENS AALIYAH METABOLIC PANEL SODIUM [MOLES/VOLU ME] IN SERUM OR PLASMA 142 meq/L 136 - 145 08/11 Specimen Type: PLASMA Comment: No hemolysis noted. Ordering Provider: MATT HEATON MD Report Released Date/Time: Aug 10, 2022 11:26 AM Reporting Lab: [facility] [address] [facility] [address] Performing Lab: [facility] [address] [facility] [address] [facility] COMPREHENS AALIYAH METABOLIC PANEL POTASSIUM [MOLES/VOLU ME] IN SERUM OR PLASMA 5.3 meq/L 3.5 - 5 08/11 H Specimen Type: PLASMA Comment: No hemolysis noted. Ordering Provider: MATT HEATON MD Report Released Date/Time: Aug 10, 2022 11:26 AM Reporting Lab: [facility] [address] [facility] [address] Performing Lab: [facility] [address] [facility] [phone] [place] [address] COMPREHENS AALIYAH METABOLIC PANEL CHLORIDE [MOLES/VOLU ME] IN SERUM OR PLASMA 108 meq/L 98 - 107 08/11 H Specimen Type: PLASMA Comment: No hemolysis noted. Ordering Provider: MATT HEATON MD Report Released Date/Time: Aug 10, 2022 11:26 AM Reporting Lab: [facility] [address] [facility] [address] Performing Lab: [facility] [address] [facility] [address] [facility] COMPREHENS AALIYAH METABOLIC PANEL CARBON DIOXIDE, TOTAL [MOLES/VOLU ME] IN SERUM OR PLASMA 24 meq/L 22 - 31 08/11 Specimen Type: PLASMA Comment: No hemolysis noted. Ordering Provider: MATT HEATON MD Report Released Date/Time: Aug 10, 2022 11:26 AM Reporting Lab: [facility] [address] [facility] [address] Performing Lab: [facility] [address] [facility] [address] [facility] COMPREHENS AALIYAH METABOLIC PANEL CALCIUM [MASS/VOLUM E] IN SERUM OR PLASMA 9.4 mg/dL 8.4 - 10.4 08/11 Specimen Type: PLASMA Comment: No hemolysis noted. Ordering Provider: MATT HEATON MD Report Released Date/Time: Aug 10, 2022 11:26 AM Reporting Lab: [facility] [address] [facility] [address] Performing Lab: [address] [phone] [place] [address] COMPREHENS AALIYAH METABOLIC PANEL PROTEIN [MASS/VOLUM E] IN SERUM OR PLASMA 7.0 g/dL 6 - 8.6 08/11 Specimen Type: PLASMA Comment: No hemolysis noted. Ordering Provider: MATT HEATON MD Report Released Date/Time: Aug 10, 2022 11:26 AM Reporting Lab: [place] [address] [facility] [address] Performing Lab: [address] [phone] [place] [address] COMPREHENS AALIYAH METABOLIC PANEL ALBUMIN [MASS/VOLUM E] IN SERUM OR PLASMA 4.4 g/dL 3.4 - 5 08/11 Specimen Type: PLASMA Comment: No hemolysis noted. Ordering Provider: MATT HEATON MD Report Released Date/Time: Aug 10, 2022 11:26 AM Reporting Lab: [address] [address] Performing Lab: [address] [address] [facility] COMPREHENS AALIYAH METABOLIC PANEL BILIRUBIN.T OTAL [MASS/VOLUM E] IN SERUM OR PLASMA 0.6 mg/dL 0.2 - 1.2 08/11 Specimen Type: PLASMA Comment: No hemolysis noted. Ordering Provider: MATT HEATON MD Report Released Date/Time: Aug 10, 2022 11:26 AM Reporting Lab: [address] [address] Performing Lab: [address] [place] [address] [facility] COMPREHENS AALIYAH METABOLIC PANEL ALKALINE PHOSPHATASE [ENZYMATIC ACTIVITY/VO LUME] IN SERUM OR PLASMA 64 U/L 40 - 150 08/11 Specimen Type: PLASMA Comment: No hemolysis noted. Ordering Provider: MATT HEATON MD Report Released Date/Time: Aug 10, 2022 11:26 AM Reporting Lab: [address] [address] Performing Lab: [address] [address] [facility] COMPREHENS AALIYAH METABOLIC PANEL ASPARTATE AMINOTRANSF ERASE [ENZYMATIC ACTIVITY/VO LUME] IN SERUM OR PLASMA 25 U/L 5 - 34 08/11 Specimen Type: PLASMA Comment: No hemolysis noted. Ordering Provider: MATT HEATON MD Report Released Date/Time: Aug 10, 2022 11:26 AM Reporting Lab: [facility] [address] [place] [address] Performing Lab: [address] [address] [facility] COMPREHENS AALIYAH METABOLIC PANEL ALANINE AMINOTRANSF ERASE [ENZYMATIC ACTIVITY/VO LUME] IN SERUM OR PLASMA 21 U/L 8 - 40 08/11 Specimen Type: PLASMA Comment: No hemolysis noted. Ordering Provider: MATT HEATON MD Report Released Date/Time: Aug 10, 2022 11:26 AM Reporting Lab: [facility] [address] [place] [phone] Performing Lab: [address] [address] [facility] COMPREHENS AALIYAH METABOLIC PANEL GLOMERULAR FILTRATION RATE/1.73 SQ M.PREDICTED [VOLUME RATE/AREA] IN SERUM, PLASMA OR BLOOD BY CREATININE- BASED FORMULA (CKD-EPI 2020) 93.9 <60 - 60 08/11 Specimen Type: PLASMA Comment: No hemolysis noted. Ordering Provider: MATT HEATON MD Report Released Date/Time: Aug 10, 2022 11:26 AM Reporting Lab: [facility] [address] [place] [phone] Performing Lab: [address] [phone] [place] [address] HGA1C HEMOGLOBIN A1C/HEMOGLO BIN.TOTAL IN BLOOD 7.5 4.0 - 6.0 08/11 H Specimen Type: BLOOD No comment entered. Ordering Provider: MATT HEATON MD Report Released Date/Time: Aug 10, 2022 11:26 AM Reporting Lab: [address] [address] Performing Lab: [address] [phone] [place] [address] PROST. SPECIFIC AG.(PB-STL ) PROSTATE SPECIFIC AG [...] Aug 10, 2022 11:26 AM Reporting Lab: [address] [address] Performing Lab: [address] [phone] [place] [address] CBC LEUKOCYTES [#/VOLUME] IN BLOOD BY AUTOMATED COUNT 6.0 10*3/u L 3.6 - 11.2 08/11 Specimen Type: BLOOD No comment entered. Ordering Provider: MATT HEATON MD Report Released Date/Time: Aug 10, 2022 11:26 AM Reporting Lab: [address] [address] Performing Lab: [address] [address] [facility] CBC ERYTHROCYTE S [#/VOLUME] IN BLOOD BY AUTOMATED COUNT 5.01 10*6/u L 4.10 - 5.70 08/11 Specimen Type: BLOOD No comment entered. Ordering Provider: MATT HEATON MD Report Released Date/Time: Aug 10, 2022 11:26 AM Reporting Lab: [address] [address] Performing Lab: [address] [phone] [place] [address] CBC HEMOGLOBIN [MASS/VOLUM E] IN BLOOD 15.5 g/dL 13.1 - 16.8 08/11 Specimen Type: BLOOD No comment entered. Ordering Provider: MATT HEATON MD Report Released Date/Time: Aug 10, 2022 11:26 AM Reporting Lab: [address] [address] Performing Lab: [address] [phone] [place] [address] CBC HEMATOCRIT [VOLUME FRACTION] OF BLOOD 46.6 38.2 - 48.4 08/11 Specimen Type: BLOOD No comment entered. Ordering Provider: MATT HEATON MD Report Released Date/Time: Aug 10, 2022 11:26 AM Reporting Lab: [address] [address] Performing Lab: [address] [address] [facility] CBC MCV [ENTITIC VOLUME] BY AUTOMATED COUNT 93.0 fL 80.0 - 100.0 08/11 Specimen Type: BLOOD No comment entered. Ordering Provider: MATT HEATON MD Report Released Date/Time: Aug 10, 2022 11:26 AM Reporting Lab: [address] [address] Performing Lab: [address] [address] [facility] CBC MCH [ENTITIC MASS] BY AUTOMATED COUNT 30.9 pg 27.0 - 34.0 08/11 Specimen Type: BLOOD No comment entered. Ordering Provider: MATT HEATON MD Report Released Date/Time: Aug 10, 2022 11:26 AM Reporting Lab: [address] [address] Performing Lab: [address] [address] [facility] CBC MCHC [MASS/VOLUM E] BY AUTOMATED COUNT 33.3 g/dL 33.0 - 36.0 08/11 Specimen Type: BLOOD No comment entered. Ordering Provider: MATT HEATON MD Report Released Date/Time: Aug 10, 2022 11:26 AM Reporting Lab: [address] [address] Performing Lab: [address] [address] [facility] CBC PLATELETS [#/VOLUME] IN BLOOD BY AUTOMATED COUNT 235 10*3/u L 150 - 400 08/11 Specimen Type: BLOOD No comment entered. Ordering Provider: MATT HEATON MD Report Released Date/Time: Aug 10, 2022 11:26 AM Reporting Lab: [address] [address] Performing Lab: [address] [address] [facility] CBC PLATELET MEAN VOLUME [ENTITIC VOLUME] IN BLOOD BY AUTOMATED COUNT 10.4 fL 7.5 - 11.2 08/11 Specimen Type: BLOOD No comment entered. Ordering Provider: MATT HEATON MD Report Released Date/Time: Aug 10, 2022 11:26 AM Reporting Lab: [address] [address] Performing Lab: [address] [address] [facility] CBC ERYTHROCYTE DISTRIBUTIO N WIDTH [RATIO] BY AUTOMATED COUNT 12.8 11.8 - 15.1 08/11 Specimen Type: BLOOD No comment entered. Ordering Provider: MATT HEATON MD Report Released Date/Time: Aug 10, 2022 11:26 AM Reporting Lab: [facility] [address] [place] [phone] Performing Lab: [facility] [address] [facility] [address] [facility] CBC LYMPHOCYTES /100 LEUKOCYTES IN BLOOD BY AUTOMATED COUNT 26 08/11 Specimen Type: BLOOD No comment entered. Ordering Provider: MATT HEATON MD Report Released Date/Time: Aug 10, 2022 11:26 AM Reporting Lab: [facility] [address] [facility] [address] Performing Lab: [facility] [address] [facility] [address] [facility] CBC MONOCYTES/1 00 LEUKOCYTES IN BLOOD BY AUTOMATED COUNT 10 08/11 Specimen Type: BLOOD No comment entered. Ordering Provider: MATT HEATON MD Report Released Date/Time: Aug 10, 2022 11:26 AM Reporting Lab: [facility] [address] [facility] [address] Performing Lab: [facility] [address] [facility] [address] [facility] CBC NEUTROPHILS /100 LEUKOCYTES IN BLOOD BY AUTOMATED COUNT 58 08/11 Specimen Type: BLOOD No comment entered. Ordering Provider: MATT HEATON MD Report Released Date/Time: Aug 10, 2022 11:26 AM Reporting Lab: [facility] [address] [facility] [address] Performing Lab: [facility] [address] [facility] [address] [facility] CBC EOSINOPHILS /100 LEUKOCYTES IN BLOOD BY AUTOMATED COUNT 5 08/11 Specimen Type: BLOOD No comment entered. Ordering Provider: MATT HEATON MD Report Released Date/Time: Aug 10, 2022 11:26 AM Reporting Lab: [facility] [address] [place] [phone] Performing Lab: [facility] [address] [place] [phone] [place] [address] CBC BASOPHILS/1 00 LEUKOCYTES IN BLOOD BY AUTOMATED COUNT 1 08/11 Specimen Type: BLOOD No comment entered. Ordering Provider: MATT HEATON MD Report Released Date/Time: Aug 10, 2022 11:26 AM Reporting Lab: [address] [address] Performing Lab: [address] [phone] CBC LYMPHOCYTES [#/VOLUME] IN BLOOD BY AUTOMATED COUNT 1.55 10*3/u L 0.77 - 4.50 08/11 Specimen Type: BLOOD No comment entered. Ordering Provider: MATT HEATON MD Report Released Date/Time: Aug 10, 2022 11:26 AM Reporting Lab: [facility] [address] [place] [phone] Performing Lab: [facility] [address] [place] [phone] [place] [address] CBC MONOCYTES [#/VOLUME] IN BLOOD BY AUTOMATED COUNT 0.62 10*3/u L 0.19 - 1.50 08/11 Specimen Type: BLOOD No comment entered. Ordering Provider: MATT HEATON MD Report Released Date/Time: Aug 10, 2022 11:26 AM Reporting Lab: [facility] [address] [place] [phone] Performing Lab: [facility] [address] [place] [phone] [place] [address] CBC NEUTROPHILS [#/VOLUME] IN BLOOD BY AUTOMATED COUNT 3.45 10*3/u L 2.10 - 8.00 08/11 Specimen Type: BLOOD No comment entered. Ordering Provider: MATT HEATON MD Report Released Date/Time: Aug 10, 2022 11:26 AM Reporting Lab: [place] [address] Performing Lab: [address] [phone] CBC EOSINOPHILS [#/VOLUME] IN BLOOD BY AUTOMATED COUNT 0.29 10*3/u L 0.00 - 0.60 08/11 Specimen Type: BLOOD No comment entered. Ordering Provider: MATT HEATON MD Report Released Date/Time: Aug 10, 2022 11:26 AM Reporting Lab: [address] [address] Performing Lab: [address] CBC BASOPHILS [#/VOLUME] IN BLOOD BY AUTOMATED COUNT 0.05 10*3/u L 0.00 - 0.20 08/11 Specimen Type: BLOOD No comment entered. Ordering Provider: MATT HEATON MD Report Released Date/Time: Aug 10, 2022 11:26 AM Reporting Lab: [address] [address] Performing Lab: [address] [phone] [place] [address] MICRAL/CRE AT PROFILE (STL) ALBUMIN [MASS/VOLUM E] IN URINE <5.0mg /L 08/11 Specimen Type: URINE Comment: uALB/CREAT Ratio Unable to be calculated Unable to calculate due to Microalbumin < 5.0 mg/L Ordering Provider: MATT HEATON MD Report Released Date/Time: Aug 10, 2022 11:26 AM Reporting Lab: [address] [phone] Performing Lab: [address] [place] [address] [facility] MICRAL/CRE AT PROFILE (STL) ALBUMIN/CRE ATININE [MASS RATIO] IN URINE commen tug/mL <20 - 20 08/11 Specimen Type: URINE Comment: uALB/CREAT Ratio Unable to be calculated Unable to calculate due to Microalbumin < 5.0 mg/L Ordering Provider: MATT HEATON MD Report Released Date/Time: Aug 10, 2022 11:26 AM Reporting Lab: [facility] [address] [place] [id number] Performing Lab: [address] [id number] [place] [address] MICRAL/CRE AT PROFILE (STL) CREATININE [MASS/VOLUM E] IN URINE 80.5 mg/dL 63 - 166 08/11 Specimen Type: URINE Comment: uALB/CREAT Ratio Unable to be calculated Unable to calculate due to Microalbumin < 5.0 mg/L Ordering Provider: MATT HEATON MD Report Released Date/Time: Aug 10, 2022 11:26 AM Reporting Lab: [address] [id number] Performing Lab: [id number] [place] [address] Vital Signs Combined list of inpatient and outpatient Vital Signs from Department of Defense and [employer] Affairs, ranging from 12 months to all on record, depending upon the facility. Vital Sign Value Date Comments Source SYSTOLIC BLOOD PRESSURE 168 10/20/2023 14:44:04 [facility] DIASTOLIC BLOOD PRESSURE 74 10/20/2023 14:44:04 [facility] PULSE OXIMETRY 96 10/20/2023 14:44:04 [facility] WEIGHT 206.2 10/20/2023 14:44:04 [facility] BMI 29 kg/m2 10/20/2023 14:44:04 [facility] PAIN 0 10/20/2023 14:44:04 [facility] HEIGHT 71 10/20/2023 14:44:[facility] HOSPITAL TEMPERATURE 97.9 10/20/2023 14:44:04 Ehsan MIRANDA [facility] PULSE 74 10/20/2023 14:44:04 ST. Jessica QUIÑONEZ [facility] RESPIRATION 18 10/20/2023 14:44:04 [facility] Encounters Combined list of: 1) Encounters from Department of [facility] facilities going backup to the last 18 months, not all [place] inpatient encounters are included; 2) Encounters from the Department of [facility] facilities going backup to 280 months. Location Location Details Encounter Type Encounter Number Reason For Visit Attending Provider ADM Date DC Date Status Disposition Source [facility] Outpatient Encounter [id number] 03/22 [facility] Outpatient Encounter [id number] 09/13 [facility] Outpatient Encounter [id number] BASILIO SEPULVEDA 09/14 [facility] Outpatient Encounter [id number] 10/19 [facility] FUNDUS PHOTOGRAPH Y W/I&R [id number] Diagnos is: ICD-10- CM Z13.5 Encount er for screeni ng for eye and ear disorde JOSHUA Alas 10/19 [facility] Outpatient Encounter [id number] Diagnos is: ICD-10- CM Z00.00 Encntr for general adult medical exam w/o abnorma l YEE Liao 10/19 [facility] IMG RTA DETC/MNTR DS PHY/QHP [id number] Diagnos is: ICD-10- CM Z13.5 Encount er for screeni ng for eye and ear disorde JOSE DE JESUS Bruce CHARLEEN MEDINAE 10/19 [facility] Outpatient Encounter [id number] 01/25 [facility] Social History Combined list of available smoking, tobacco, and other social history from Department of Defense and [facility] facilities. Social History Type Response Date Comment Sourc e Tobacco smoking status NH[place]-TO[place]AC[place] FORMER USER 10/20/2023 [facility] History of tobacco use [place]-TO[place]AC[place] QUIT 1 5 YRS OR MORE 10/20/2023 [facility] History of tobacco use [place] FORMER USER 09/07/2018 [facility] Plan of Care List of future care activities from Department of [facility] facilities. Additional future care activities may be listed in the Assessment and Plan section. Date/Time Care Activity Care Activity Detail Facili ty 10/23/2024 AMBULATORY - MEDICINE AMBULATORY - MEDICI NE [facility]
--- OUTSIDE RECORDS SUMMARY | 2024-07-27 07:46 | XMS_ITS | Encounter Summary ---
Author Organization [facility] Address [address] [place] [address] Care Team Providers Care Cdl A Driver Name Role Phone Unavailable Primary Care Provider Unavailabl e Encounter Details Date Type Department Care Team (Late st Contact Info) Description 09/22/2005 Orders Only [facility] Internal Medicine [address] [address] Nik Winn MD [address] [place] [id number] Social History Tobacco Use Types Packs/Day Years Used Date Smoking Tobacco: Never Assessed Sex and Gender Information Value Date Recorded Sex Assigned at Not on file Legal Sex Male 3:27 AM ESTIMATOR BINDING Gender Identity Not on file Sexual Orientation [...] several years ago. 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 [...] 09/22/2005. 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 RETURN VISIT : Patient instructed to return in 3 months. Electronically Signed by: Nik Winn MD on Thursday, September 22, 2005 documented in this encounter Plan of Treatment Not on file documented as of this encounter Visit Diagnoses Not on filedocumented in this encounter
--- OUTSIDE RECORDS SUMMARY | 2024-07-27 07:47 | XMS_ITS | Encounter Summary ---
Author Organization [facility] Address 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 Gender Identity Not on file Sexual Orientation Not on file documented as of this encounter Last Filed Vital Signs Vital Sign Reading Time Taken Comments Blood Pressure 140/90 08/09/2005 12:00 PM MUSIC EXECUTIVE Pulse - - Temperature 36.4 C (97.52 F) 08/09/2005 12:00 PM MUSIC EXECUTIVE Respiratory Rate - - Oxygen Saturation - - Inhaled Oxygen Concentration - - Weight 98.9 kg (218 lb) 08/09/2005 12:00 PM MUSIC EXECUTIVE Height 180.3 cm (5' 11 ) 08/09/2005 12:00 PM MUSIC EXECUTIVE Body Mass Index 30.4 08/09/2005 12:00 PM MUSIC EXECUTIVE documented in this encounter Plan of Treatment Not on file documented as of this encounter Visit Diagnoses Not on filedocumented in this encounter
[2024-07-27 08:16] LABS: Estimated Glomerular Filt Rate > 60
== END 2024-07-27 07:41 | disposition home or self-care (01) ==
LOC: CHSIMG 07:42
PROVIDERS: PCP Internal Medicine; Visit Provider Internal Medicine
DX: N28.1 Cyst of kidney, acquired (principal)
CPT/HCPCS: 74177; Q9967

== ENCOUNTER 2024-11-10 19:45 | Emergency (ER) | payer MEDICARE, SELFPAY ==
[2024-11-10] VITALS (13 sets, daily range): BP systolic 130–159; BP diastolic 65–103; PULSE 79–108; RESP 14–22; TEMP 37.2; O2SAT 94–100
--- NOTE | ~2024-11-10 | XR_ITS ---
XR chest 1V portable Ordering provider: Aaliyah Stanley MD History: 74 years Male with . DYSPNEA . Comparison: July 25, 2024 FINDINGS: MEDIASTINUM: The cardiac silhouette is not enlarged. LUNGS: No infiltrates, effusions or pneumothorax. OTHER: No free air under the diaphragm. IMPRESSION: No acute cardiopulmonary pathology. Reviewed, dictated and finalized at location A.
--- NOTE | 2024-11-10 19:46 | ECG_ITS ---
Test Date: 2024-11-10 19:46:26 Measurements Intervals [place] Rate: 114 P: 82 [place]: 171 QRS: 57 QRSD: 88 T: 76 QT: 315 QTc: 435 Interpretive Statements SINUS TACHYCARDIA ABNORMAL RHYTHM ECG No previous ECG available for comparison Electronically Signed On 11-11-2024 10:08:27 CDT by Heber Arevalo M.D.
--- NOTE | 2024-11-10 20:03 | ED_ITS ---
HPI - SOB/Dyspnea General Chief Complaint: Shortness of Breath/Dyspnea Stated Complaint: SOB/COUGHING Time Seen by Provider: 11/10/24 19:55 History of Present Illness HPI Narrative: Patient is a 74-year-old male who presents to the ER with shortness of breath and tachycardia. He reports he is allergic to cottonwood trees and spent a fair amount of time outside earlier today. Patient reports he believes he is having an allergic reaction. He presents to the ER via EMS and received Solu- Medrol and DuoNeb en route. Patient denies any recent fevers, chest pain, abdominal pain, or lower extremity swelling. He reports the DuoNeb en route helped relieve some of his symptoms. Patient denies any other pertinent medical history relevant to this ER visit. Related Data Home Medications ?Medication ?Instructions ?Recorded ?Confirmed ?Last Taken ?Type alogliptin 25 mg tablet 25 mg PO DAILY 07/01/21 09/02/21 Unknown History levocetirizine 5 mg tablet (Xyzal) 5 mg PO DAILY 07/01/21 09/02/21 Unknown History albuterol sulfate 90 mcg/actuation 1 puff inhalation Q4H PRN 08/27/21 09/02/21 Unknown History aerosol inhaler (ProAir HFA) cyclobenzaprine 10 mg tablet 10 mg PO TID 08/27/21 09/02/21 Unknown History simvastatin 40 mg tablet 40 mg PO DAILY 08/27/21 09/02/21 Unknown History Allergies Allergy/AdvReac Type Severity Reaction Status Date / Time tree and shrub pollen Allergy Intermediate Difficulty Verified 11/10/24 19:53 Breathing atorvastatin Allergy Unknown Other Verified 11/10/24 19:53 codeine Allergy Anaphylaxis Verified 11/10/24 19:53 Review of Systems 2 Review of Systems: All systems reviewed & are unremarkable except as noted in HPI and below PMFSH Past Medical History Medical History H/O agent Todd exposure Diabetes Type 2 Obesity Hyperlipidemia Surgical History Surgical History History of appendectomy History of tonsillectomy Family History Family History Father Hypertension Family history of elevated blood lipids Family history of diabetes mellitus in first degree relative Family history of coronary artery disease, Onset Age: 56 Patient's father is Social History Social History Smoking status: Former smoker Second hand tobacco smoke exposure: No Smoking end date: 06/20/10 Alcohol intake: current Drinks per week: 3 Living arrangements: with family Spiritual care concerns: No Exam 2 Narrative: GENERAL: Ill appearing, well-nourished, non-toxic, in acute distress. HEAD: Normocephalic, atraumatic. NECK: Supple. No adenopathy, no masses. RESPIRATORY: Airway patent, respirations labored. Clear to auscultation bilaterally, no rales, rhonchi, mild wheezing. Tachypnea. CARDIOVASCULAR: Tachycardia without murmurs, rubs, or gallops. Peripheral pulses 2+ and equal bilaterally. ABDOMINAL: Soft, nontender, nondistended, no hepatosplenomegaly. Normoactive BS. MUSCULOSKELETAL: Moves all extremities. Strength/ROM intact without gross deformities. SKIN: Warm, dry, normal color. No rashes. NEURO: A&O X3. Speech clear. Cranial nerves II-XII intact. No ataxic movements. PSYCHIATRIC: Slightly anxious. Normal interaction. 2144-Upon reexamination patient's respir atory status has returned to normal. He is no longer wheezing, nor is he tachypneic. His heart rate is 85 beats per minute and is regular. Course Vital Signs Vital signs: Vital Signs Temperature 37.2 C 11/10/24 19:45 Pulse Rate 108 H 11/10/24 19:45 Respiratory Rate 22 H 11/10/24 19:45 Blood Pressure 157/103 H 11/10/24 19:45 Pulse Oximetry 98 11/10/24 19:45 Oxygen Delivery Room Air 11/10/24 19:45 Temperature 37.2 C 11/10/24 19:45 Pulse Rate 86 11/10/24 21:17 Respiratory Rate 19 11/10/24 21:17 Blood Pressure 131/86 11/10/24 21:17 Pulse Oximetry 100 11/10/24 21:17 Oxygen Delivery Room Air 11/10/24 21:15 Fraction of Inspired Oxygen 11/10/24 20:59 MDM - SOB/Dyspnea MDM Narrative Medical decision making narrative: Patient is a 74-year-old male who presents to the ER with shortness of breath and tachycardia. He reports he is allergic to cottonwood trees and spent a fair amount of time outside earlier today. Patient reports he believes he is having an allergic reaction. He presents to the ER via EMS and received Solu- Medrol and DuoNeb en route. Patient denies any recent fevers, chest pain, abdominal pain, or lower extremity swelling. He reports the DuoNeb en route helped relieve some of his symptoms. Patient denies any other pertinent medical history relevant to this ER visit. Labs Ordered: CBC, CMP, magnesium, lipase, troponin, INR, PTT Imaging Ordered: Chest x-ray Medications Ordered: Magnesium IV, Pepcid IV, Benadryl IV (pt refused), 1 L normal saline IV bolus Results: Patient's chest x-ray indicates No acute cardiopulmonary pathology. His CMP indicates some mild dehydration and low potassium. Diagnosis: Shortness of breath, allergic reaction Patient Education/Shared MDM: Results of lab work shared with patient. He endorses significant improvement of symptoms following medication administration. Patient strongly advised to maintain hydration status upon discharge and follow-up with their PCP as soon as possible. He will be discharged home with a prescription for Prednisone. Strict return precautions provided. Patient verbalized understanding and is in agreement with plan. Vital signs stable for the two hours he has been in the ER and at time of discharge. All questions answered. Differential Diagnosis Differential diagnosis: Likely acute exacerbation of chronic obstructive airways disease, community acquired pneumonia and asthma with exacerbation Lab Data Attestation: I reviewed the patient's lab results. 11/10/24 20:26 11/10/24 20:26 Labs: Lab Results 11/10/24 Range/Units 20:26 WBC 5.5 (4.5-10.0) K/mm3 RBC 4.62 (4.6-6.20) M/mm3 Hgb 15.0 (14.0-18.0) g/dL Hct 44.3 (42.0-52.0) % MCV 95.9 (80-100) fl MCH 32.5 (26-34) pg MCHC 33.9 (32-36) g/dl RDW 12.4 (11.5-14.5) % Plt Count 226 (150-375) k/mm3 MPV 9.5 (7.4-10.4) fl Immature Gran % (Auto) 0.2 (0-0.5) % Neut % (Auto) 59.0 (45.5-73.1) % Lymph % (Auto) 24.9 (18.3-44.2) % [place] % (Auto) 10.2 H (2.6-8.5) % Eos % (Auto) 4.8 H (0-4.4) % Baso % (Auto) 0.9 (0.2-1.2) % Lymph # (Auto) 1.36 (0.9-3.2) K/mm3 [place] # (Auto) 0.6 (0.1-0.6) K/mm3 Eos # (Auto) 0.3 (0-0.3) K/mm3 Baso # (Auto) 0.1 (0.0-0.1) K/mm3 Abs Immat Gran (auto) 0.01 (0.00-0.031) K/mm3 Absolute Neuts (auto) 3.2 (1.3-6.7) K/mm3 Absolute Nucleated RBC 0.000 (0.0-0.012) K/mm3 Nucleated RBC % 0.0 (0.0-0.2) % PT 13.5 (11.1-14.7) Seconds INR 1.0 APTT 28.4 (22.3-36.8) Seconds Sodium 141 (137-145) mmol/L Potassium 3.3 L (3.4-5.0) mmol/L Chloride 109 H (98-107) mmol/L Carbon Dioxide 18 L (22-30) mmol/L Anion Gap 14 H (4-12) mmol/L BUN 16 (9-20) mg/dL Creatinine 0.62 L (0.7-1.3) mg/dL Estim Creat Clear Calc 93 ml/min Estimated GFR > 60 (59 - ) Glucose 154 H (65-110) mg/dL Calcium 9.3 (8.4-10.2) mg/dL Magnesium 2.2 (1.6-2.3) mg/dL Total Bilirubin 0.4 (0.2-1.3) mg/dL AST 37 (17-59) U/L ALT 29 (6-50) U/L Alkaline Phosphatase 61 (38-126) U/L Troponin I < 0.012 (0.000-0.034) ng/mL Total Protein 7.0 (6.3-8.2) g/dL Albumin 4.8 (3.5-5.1) g/dL Lipase 70 (23-300) U/L Imaging Data Attestation: I personally reviewed and interpreted this imaging study as follows: Radiologist's impression: Impressions Chest X-Ray 11/10/24 21:22 IMPRESSION: No acute cardiopulmonary pathology. Discharge Plan Discharge Clinical Impression: Seasonal allergic reaction Patient Disposition: Home Condition: Stable Instructions: Antibiotic Form, Allergies (ED) Additional Instructions: Please return to the ER with any worsening symptoms. Follow-up with primary care provider as soon as possible. Take all medications as prescribed, including regularly scheduled medications. Patient Language: Thai Prescriptions: New methylprednisolone [Medrol (Andrei)] 4 mg tablets,dose pack See Rx Instructions .ROUTE .COMPLEX Qty: 21 0RF Rx Instructions: for 6 days No Action albuterol sulfate [ProAir HFA] 90 mcg/actuation HFA aerosol inhaler 1 puff inhalation Q4H PRN simvastatin 40 mg tablet 40 mg PO DAILY cyclobenzaprine 10 mg tablet 10 mg PO TID alogliptin 25 mg Tablet 25 mg PO DAILY levocetirizine [Xyzal] 5 mg Tablet 5 mg PO DAILY Follow-up/Referrals: Melody George MD [Primary Care Provider] - Time of Disposition: 21:54
[2024-11-10] MEDS: SODIUM CHLORIDE 0.9% IV 1,000 ML 999 ML IV CONT (20:10)
[2024-11-10] MEDS: MAGNESIUM SULF 2 GM/WATER 50ML 2 GM/50 ML BAG 25 GM (20:11)
[2024-11-10] MEDS: FAMOTIDINE 20 MG/2 ML VIAL IV PUSH (20:11)
--- OUTSIDE RECORDS SUMMARY | 2024-11-10 20:11 | XMS_ITS | Clinical Summary ---
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 Gender Identity Not on file Sexual Orientation Not on file Last Filed Vital Signs Vital Sign Reading Time Taken Comments Blood Pressure 140/90 08/09/2005 12:00 PM GLYCERINE PLANT OPERATOR Pulse - - Temperature 36.4 C (97.52 F) 08/09/2005 12:00 PM GLYCERINE PLANT OPERATOR Respiratory Rate - - Oxygen Saturation - - Inhaled Oxygen Concentration - - Weight 98.9 kg (218 lb) 08/09/2005 12:00 PM GLYCERINE PLANT OPERATOR Height 180.3 cm (5' 11 ) 08/09/2005 12:00 PM GLYCERINE PLANT OPERATOR Body Mass Index 30.4 08/09/2005 12:00 PM GLYCERINE PLANT OPERATOR Plan of Treatment Health Maintenance Due Date Last Done Comments COLORECTAL SCREENING 02/02/1996 FIT-DNA Q 3 years 02/02/1996 Flex Sig/CT Colonography Q 5 years 02/02/1996 DTAP/TDAP/TD VACCINES (1 - Tdap) 11/27/1998 11/26/18 99 PNEUMOCOCCAL VACCINE 50+ YEARS (1 of 1 - PCV) 02/02/20 01 ZOSTER VACCINE (1 of 2) 2001 Colorectal Cancer Screening 09/22/2006 FIT/FOBT Q 1 year 09/22/2006 09/22/2005 INFLUENZA VACCINE (#1) 2024 RSV VACCINE (60+ or ) (1 - 1-dose 75+ series) 2026
--- OUTSIDE RECORDS SUMMARY | 2024-11-10 20:11 | XMS_ITS | Encounter Summary ---
Author Organization [facility] Address 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 Gender Identity Not on file Sexual Orientation Not on file documented as of this encounter Last Filed Vital Signs Vital Sign Reading Time Taken Comments Blood Pressure 140/90 08/09/2005 12:00 PM MANAGER BABY Pulse - - Temperature 36.4 C (97.52 F) 08/09/2005 12:00 PM MANAGER BABY Respiratory Rate - - Oxygen Saturation - - Inhaled Oxygen Concentration - - Weight 98.9 kg (218 lb) 08/09/2005 12:00 PM MANAGER BABY Height 180.3 cm (5' 11 ) 08/09/2005 12:00 PM MANAGER BABY Body Mass Index 30.4 08/09/2005 12:00 PM MANAGER BABY documented in this encounter Plan of Treatment Not on file documented as of this encounter Visit Diagnoses Not on filedocumented in this encounter
--- OUTSIDE RECORDS SUMMARY | 2024-11-10 20:11 | XMS_ITS | Continuity of Care Document ---
Author Name [facility] Organization [facility] Care Team Providers Care Terrazzo Tile Setter Name Role Phone [facility] Unavailable Unavailable Problems Combined list of problems from Department of [facility] and [facility] facilities. It does not include entries that were removed or entered in error. Problem Status Onset Date Problem Type Date of Resolution Comments Source Allergic rhinitis Active Condition [facility] COPD - Chronic Obstructive Pulmonary Disease ([facility] [id number]) Active Condition [facility] Diabetes Mellitus Type 2 ([facility] [id number]) Active Condition [facility] Exposure to potentially hazardous substance ([facility] [id number]) Active Condition October 20 4 Entered By: KENNETH QUINTERO Comment: Entered automatically through IVAN Problem List documentation program [facility] Hyperlipidemia ([facility] [id number]) Active Condition [facility] Diagnosis: ICD-10-CM Z00.00 Encntr for general adult medical exam w/o abnormal findings Active Diagnosis [facility] Diagnosis: ICD-10-CM Z55.9 Problems related to education and literacy, unspecified Active Diagnosis [facility] Diagnosis: ICD-10-CM Z13.5 Encounter for screening for eye and ear disorders Active Diagnosis [facility] Medications Combined list of outpatient medications from [facility] and [facility] facilities.Medications provided include 1) outpatient medications from [...] CLOGGING . RESPIR ATORY (INHAL ATION) ACTIVE 10/24/2025 [id number] CATARINO LOPEZ 2024 1 [facility] ALBUTEROL SO4 90MCG/ACTUA T (CFC-F) INHL,ORAL,8 .5GM INHALE 2 PUFFS BY ORAL INHALATI ON FOUR TIMES A DAY NEEDED FOR BREATHIN G. SHAKE WELL. RINSE MOUTHPIE CE FREQUENT LY TO PREVENT CLOGGING . RESPIR ATORY (INHAL ATION) DISCONT INUED 03/17/2025 [id number] 5 CARLOS HEATON MD 2023 1 [facility] ALBUTEROL SO4 90MCG/ACTUA T (CFC-F) INHL,ORAL,8 .5GM INHALE 2 PUFFS BY ORAL INHALATI ON FOUR TIMES A DAY NEEDED FOR BREATHIN G. SHAKE WELL. RINSE MOUTHPIE CE FREQUENT LY TO PREVENT CLOGGING . RESPIR ATORY (INHAL ATION) DISCONT INUED 01/18/2024 [id number] CARLOS HEATON MD 2022 1 [facility] DIPHENHYDRA MINE CAP,ORAL TAKE BY MOUTH AT BEDTIME NEEDED ORAL ACTIVE JESSICA,CATARINO LBY R 2023 [facility] EMPAGLIFLOZ IN 25MG TAB TAKE ONE TABLET BY MOUTH ONCE A DAY ORAL ACTIVE 10/24/2025 [id number] 5 JESSICA,CATARINO LBY R 2024 90 [facility] EMPAGLIFLOZ IN 25MG TAB TAKE ONE TABLET BY MOUTH ONCE A DAY ORAL DISCONT INUED 10/20/2024 [id number] 5 CATARINO LOEPZ LBY R 2023 90 [facility] EMPAGLIFLOZ IN 25MG TAB TAKE ONE TABLET BY MOUTH ONCE A DAY ORAL DISCONT INUED 12/12/2023 [id number] 4 CARLOS HEATON MD 2023 90 [facility] SIMVASTATIN 80MG TAB TAKE ONE-HALF TABLET BY MOUTH EVERY EVENING TO LOWER CHOLESTE ROL (REPORT ANY MUSCLE PAIN OR WEAKNESS ) ORAL SUSPEND ED 10/24/2025 [id number] 5 CATARINO LPOEZ R 2024 45 [facility] SIMVASTATIN 80MG TAB TAKE ONE-HALF TABLET BY MOUTH EVERY EVENING TO LOWER CHOLESTE ROL (REPORT ANY MUSCLE PAIN OR WEAKNESS ) ORAL DISCONT INUED 10/20/2024 [id number] CATARINO LOPEZ R 2023 45 [facility] SIMVASTATIN 80MG TAB TAKE ONE-HALF TABLET BY MOUTH EVERY EVENING TO LOWER CHOLESTE ROL (REPORT ANY MUSCLE PAIN OR WEAKNESS ) ORAL DISCONT INUED 10/20/2024 [id number] 4 CATARINO LOPEZ R 2023 45 [facility] SIMVASTATIN 80MG TAB TAKE ONE-HALF TABLET BY MOUTH EVERY EVENING TO LOWER CHOLESTE ROL (REPORT ANY MUSCLE PAIN OR WEAKNESS ) ORAL DISCONT INUED 01/01/2024 [id number] CARLOS HEATON MD 2023 45 [facility] SINUS RINSE NEILMED REGULAR KIT USE 1 KIT NOSTRIL( S) ONCE A DAY NASAL ACTIVE CATARINO LOPEZ R 2023 [facility] Immunizations Combined list of available immunizations from the Department of Defense and Veterans Affairs facilities. Immunization Series Date Given Administered By Site Reaction Lot Number CVX Code Drug Machine Helper Status Comments Source COVID-19 ([employer]), MRNA, LNP-S, PF, DUANE-SUCROSE, 30 MCG/0.3 ML (AGES 12+ YEARS) 1 2023 309 complet ed HISTORICA L INFORMATI ON - FROM OTHER REGISTRY, [facility] INFLUENZA, HIGH-DOSE, TRIVALENT, PF 1 2023 135 complet ed HISTORICA L INFORMATI ON - FROM OTHER [facility], [facility] COVID-19 ([employer]), MRNA, LNP-S, PF, DUANE-SUCROSE, 30 MCG/0.3 ML (AGES 12+ YEARS) 1 2022 309 complet ed HISTORICA L INFORMATI ON - FROM OTHER [facility], [facility] INFLUENZA VACCINE, QUADRIVALENT, ADJUVANTED 1 2022 205 complet ed HISTORICA L INFORMATI ON - FROM OTHER REGISTRY, [facility] ZOSTER RECOMBINANT 2 2022 187 complet ed HISTORICA L INFORMATI ON - FROM OTHER REGISTRY, [facility] ZOSTER RECOMBINANT 1 2022 187 complet ed HISTORICA L INFORMATI ON - FROM OTHER REGISTRY, [facility] COVID-19 ([employer]), MRNA, LNP-S, BIVALENT, PF, 30 MCG/0.3 ML DOSE 5 2021 300 complet ed HISTORICA L INFORMATI ON - FROM OTHER REGISTRY, [facility] INFLUEN[facility], HIGH-DOSE, QUADRIVALENT 1 2021 197 complet ed HISTORICA L INFORMATI ON - FROM OTHER REGISTRY, [facility] COVID-19 ([employer]), MRNA, LNP-S, PF, 30 MCG/0.3 ML DOSE, DUANE-SUCROSE (AGES 12+ YEARS) 4 2021 217 complet ed HISTORICA L INFORMATI ON - FROM OTHER REGISTRY, [facility] N INFLUENZA, HIGH-DOSE, QUADRIVALENT 2 2020 197 complet ed HISTORICA L INFORMATI ON - FROM OTHER REGISTRY, [facility] INFLUEN[facility], HIGH-DOSE, QUADRIVALENT 1 2020 197 complet ed HISTORICA L INFORMATI ON - FROM OTHER REGISTRY, [facility] COVID-19 ([employer]), MRNA, LNP-S, PF, 30 MCG/0.3 ML DOSE 3 2020 208 complet ed HISTORICA L INFORMATI ON - FROM OTHER REGISTRY, [facility] COVID-19 ([employer]), MRNA, LNP-S, PF, 30 MCG/0.3 ML DOSE 2 2020 208 complet ed PFR; [id number]; [facility] COVID-19 ([facility]), MRNA, LNP-S, PF, 100 MCG/0.5ML DOSE OR 50 MCG/0.25ML DOSE 2 2020 207 complet ed HISTORICA L INFORMATI ON - FROM OTHER [facility], [facility] ([employer]), MRNA, LNP-S, PF, 30 MCG/0.3 ML DOSE 1 2020 208 complet ed PFR; [id number]; 1 [facility] COVID-19 ([facility]), MRNA, LNP-S, PF, 100 MCG/0.5ML DOSE OR 50 MCG/0.25ML DOSE 1 2020 207 complet ed HISTORICA L INFORMATI ON - FROM OTHER [facility], [facility] INFLUENZA, HIGH-DOSE, QUADRIVALENT 1 2019 197 complet ed HISTORICA L INFORMATI ON - FROM OTHER [facility], [facility] INFLUENZA, UNSPECIFIED FORMULATION 2019 88 complet ed [facility] INFLUENZA, HIGH DOSE SEASONAL 1 2018 135 complet ed HISTORICA L INFORMATI ON - FROM OTHER [facility], [facility] INFLUENZA, UNSPECIFIED FORMULATION 2017 88 complet ed [place] PNEUMOCOCCAL CONJUGATE PCV 13 2 2017 133 complet ed HISTORICA L INFORMATI ON - FROM OTHER [facility], [facility] N PNEUMOCOCCAL POLYSACCHARID E PPV23 1 2016 33 complet ed HISTORICA L INFORMATI ON - FROM OTHER REGISTRY, [facility] INFLUENZA, HIGH DOSE SEASONAL 1 2015 135 complet ed HISTORICA L INFORMATI ON - FROM OTHER REGISTRY, [facility] INFLUENZA, SPLIT (INCL. PURIFIED SURFACE ANTIGEN) 1 2013 15 complet ed HISTORICA L INFORMATI ON - FROM OTHER REGISTRY, [facility] Vital Signs Combined list of inpatient and outpatient Vital Signs from Department of Defense and Veterans Affairs, ranging from 12 months to all on record, depending upon the facility. Vital Sign Value Date Comments Source SYSTOLIC BLOOD PRESSURE 163 10/23/2024 09:53:45 [facility] DIASTOLIC BLOOD PRESSURE 70 10/23/2024 09:53:45 Ehsan R[facility]EN [facility] PULSE OXIMETRY 96 10/23/2024 09:53:45 S Rell RUBEN [facility] WEIGHT 204.2 10/23/2024 09:53:45 [facility] BMI 29 kg/m2 10/23/2024 09:53:45 [facility] PAIN 0 10/23/2024 09:53:45 STEhsan Lopez [facility] TEMPERATURE 97.5 10/23/2024 09:53:45 Ehsan [facility] PULSE 79 10/23/2024 09:53:45 . [facility] RESPIRATION 18 10/23/2024 09:53:45 Ehsan RUEBN [facility] Encounters Combined list of: 1) Encounters from Department of [facility] Affairs facilities going backup to the last 18 months, not all [place] inpatient encounters are included; 2) Encounters from the Department of [facility] facilities going backup to 280 months. Location Location Details Encounter Type Encounter Number Reason For Visit Attending Provider ADM Date DC Date Status Disposition Source [facility] Outpatient Encounter [id number] 09/13 [facility] Outpatient Encounter [id number] BASILIO SEPULVEDA 09/14 [facility] Outpatient Encounter [id number] 10/19 [facility] FUNDUS PHOTOGRAPH Y W/I&R [id number] Diagnos is: ICD-10- CM Z13.5 Encount er for screeni ng for eye and ear disorde JOSHUA Alas 10/[address] [facility] Outpatient Encounter [id number] Diagnos is: ICD-10- CM Z00.00 Encntr for general adult medical exam w/o abnorma l finding s YEE LOPEZ BY R 10/19 [facility] IMG RTA DETC/MNTR DS PHY/QHP [id number] Diagnos is: ICD-10- CM Z13.5 Encount er for screeni ng for eye and ear disorde JOSE DE JESUS Bruce 10/19 [facility] Outpatient Encounter [id number] 01/25 [facility] Outpatient Encounter [id number] 05/23 [facility] FEE [id number] Diagnos is: ICD-10- CM Z55.9 Problem s related to educati on and literac y, unspeci fied JOSHUA MANUEL 08/08 [facility] Outpatient Encounter [id number] 10/23 [facility] Outpatient Encounter [id number] Diagnos is: ICD-10- CM Z00.00 Encntr for general adult medical exam w/o abnorma l finding s YEE LOPEZ BY Dayana 10/23 [facility] Social History Combined list of available smoking, tobacco, and other social history from Department of Defense and [facility] Affairs facilities. Social History Type Response Date Comment Sourc e Tobacco smoking status NHIS VA-TOBACCO USE FORMER CIGARETTES 10/23/2024 [facility] History of tobacco use PR-TOBACCO NEVER USED OTHER TYPE 10/23/2024 [facility] History of tobacco use PR-TOBACCO FORMER USER 10/20/2023 [facility] History of tobacco use VA-TOBACCO FORMER USER 09/07/2018 [facility]
--- OUTSIDE RECORDS SUMMARY | 2024-11-10 20:11 | XMS_ITS | Encounter Summary ---
Author Name [facility] Address [address] [place] [address] Care Team Providers Care Rf Test Engineer Name Role Phone SANGEETA LOPEZ Primary Care [...] Name Patient's Relationship to Policy Smith AARP MED SUPP MEDIGAP PLAN F MEDIC ARE SUPPL EMENT Jun 20, 2017 PLAN F [id number] [phone] ESTELA ANGELES RNARD PATIENT MEDICARE (WNR) MEDICARE (M) PART A Jan 19, 2016 PART A [id number] ESTELA ANGELES RNARD PATIENT MEDICARE (WNR) MEDICARE (M) PART B Jan 19, 2016 PART B [id number] ESTELA ANGELES RNANADIRA PATIENT Selected Encounter This section includes the information on record at [place] for the Encounter. Date/Time Encounter Type Encounter Description Reason Provider Source October 23, 2024 10:00 AM Outpatient Encounter PRIMARY CARE/MEDICINE ICD-10-CM Z00.00 Encntr for general adult medical exam w/o abnormal findings SANGEETA LOPEZ Amanda Encounter Template Text not used by [place] Assessments - Encounter Diagnoses This section includes the primary and secondary diagnoses documented for the Encounter. Date/Time Primary/Secondary Diagnosis Diagnosis Name Provider Source October 31, 2024 11:56 AM PRIMARY Encntr for general adult medical exam w/o abnormal findings SANGEETA LOPEZ [facility] October 31, 2024 11:56 AM SECONDARY Allergic rhinitis, unspecified SANGEETA LOPEZ [facility] October 31, 2024 11:56 AM SECONDARY Chronic obstructive pulmonary disease, unspecified SANGEETA LOPEZ [facility] October 31, 2024 11:56 AM SECONDARY Hyperlipidemia, unspecified SANGEETA LOPEZ [facility] October 31, 2024 11:56 AM SECONDARY Type 2 diabetes mellitus without complications LOPEZSANGEETA [facility] Vital Signs: All taken on the encounter date This section contains inpatient and outpatient Vital Signs collected on the date of the Encounter. Date/Time Temperature Pulse Blood Pressure Respiratory Rate SP02 Pain Height Weight Body Mass Index Source October 23, 2024 10:21 AM 124/60 [facility] October 23, 2024 09:53 AM 149/71 [facility] October 23, 2024 09:53 AM 97.5 79 163/70 18 96 0 204.2 29 [facility] Social History: Smoking Status (Most current) and Tobacco Use (All prior to encounter date) This section includes the most current, and the historical, smoking and tobacco- related health factors from the [place] facility where the Encounter took place. Current Smoking Status This section includes the most current smoking, or tobacco-related health factor, from the [place] facility where the Encounter took place. Date/Time Current Smoking Status Comment Facil ity October 23, 2024 10:00 AM VA-TOBACCO USE FOR NEVIN CIGARETTES [facility] Tobacco Use History This section includes a history of the smoking, or tobacco-related health factors, that were collected on or before the date of the Encounter. The data comes from the [place] facility where the Encounter took place. Date/Time Smoking Status/Tobacco Use Comment F acjudy October 23, 2024 10:00 AM VA-TOBACCO USE FOR NEVIN CIGARETTES [facility] October 20, 2023 03:00 PM VA-TOBACCO FORMER USER [facility] October 20, 2023 03:00 PM VA-TOBACCO QUIT 15 YRS OR MORE [facility] Sep 07, 2018 08:30 AM VA-TOBACCO FORMER USER [facility] Sep 07, 2018 08:30 AM VA-TOBACCO QUIT 5 TO < 15 YRS [facility] Encounter Notes: All associated encounter notes This section contains the clinical notes associated to the Encounter. Date/Time Encounter Note(s) Provider Source October 23, 2024 10:26 AM ADDENDUM: LOCAL TITLE: Addendum STANDARD TITLE: ADDENDUM DATE OF NOTE: OCTOBER 23, 2024@10:26:12 ENTRY DATE: OCTOBER 23, 2024@10:26:13 AUTHOR: SANGEETA LOPEZ EXP COSIGNER: URGENCY: STATUS: COMPLETED Obtains labs in the private sector with private PCP, reports obtained within the past month. Will ask RNCM to obtain records for informational purposes. -Private PCP Dr. Melody George in [place], [place]. /martha/ Sangeeta Lopez DNP, SPINNING LATHE OPERATOR AUTOMATIC, FURNITURE FINISHER HELPER-C Primary Care Nurse Practitioner Signed: 10/23/2024 10:26 Receipt Acknowledged By: 10/23/2024 14:04 /es/ ANGELA SEPULVEDA RN BSN REGISTERED NURSE --- Original Document --- 10/23/24 PRIMARY CARE PROVIDER ESTABLISHED VISIT STL: REASON FOR VISIT/CHIEF COMPLAINT: Evaluation and management of chronic medical conditions/ My scheduled visit HPI: Patient is a 74 year old WHITE MALE who presents to the clinic for evaluation and management of chronic medical conditions. Patient denies any recent ED visits or hospitalizations. Patient goes by Pat. Private providers: -Patient reports his private PCP manages his primary care. [facility]. -Private PCP Dr. Melody George in [place], [place]. -Private optometry at [facility]. #DM 2: -HGA1C: Reports has obtained in the private sector recently and was 6.6. -Medications: EMPAGLIFLOZIN. -Reports compliance to medication regimen. -Checking blood sugar: Denies. Denies having diabetic supplies at home, declines supplies today. -Eye exam: Had Tele retinal 10/20/23. -Foot exam: See reminders. -Micral: Obtains in the private sector. -Statin: Yes. -ACEI: None. -Denies recent hypo/hyperglycemia episodes. #HLD: -Medication: Simvastatin. -Reports compliance with medication regimen. -Denies any new onset of myalgias. #COPD: -Medications: Albuterol PRN. -Denies increased SOB, coughing, wheezing, mucus production or hemoptysis. #Allergic rhinitis: -Medication: Benadryl PRN and Sinus rinses. -Controlled per patient. SOURCE(S) OF HISTORY: Patient PAST MEDICAL HISTORY: 1) Diabetes Mellitus Type 2 ([facility] [id number]) 2) COPD - Chronic Obstructive Pulmonary Disease ([facility] [id number]) 3) Hyperlipidemia ([facility] [id number]) 4) Allergic rhinitis 5) Exposure to potentially hazardous substance ([facility] [id number]) comment: Entered automatically through [facility] Problem List documentation prog SOCIAL HISTORY: Tobacco: Former smoker. Quit at [...] (CFC-F) 200D ORAL INHL INHALE 2 PUFFS BY ACTIVE ORAL INHALATION FOUR TIMES A DAY NEEDED FOR BREATHING. SHAKE WELL. RINSE MOUTHPIECE FREQUENTLY TO PREVENT CLOGGING. Inactive Outpatient Medications Status 1) EMPAGLIFLOZIN 25MG TAB TAKE ONE TABLET BY MOUTH ONCE A DAY 2) SIMVASTATIN 80MG TAB TAKE ONE-HALF TABLET BY MOUTH EVERY EVENING TO LOWER CHOLESTEROL (REPORT ANY MUSCLE PAIN OR WEAKNESS) Active Non-VA Medications Status 1) Non-VA SINUS RINSE NEILMED REGULAR KIT 1 KIT NOSTRIL(S) ONCE ACTIVE A DAY Indication: FOR NASAL CONGESTION 4 Total Medications REVIEW OF SYSTEMS: Constitutional: Denies weight loss, fever, chills. Ears, Nose, Mouth, Throat: Denies nasal drainage or sore throat. Denies dizziness. Endocrinology: Denies heat or cold intolerance, polydipsia, polyuria, or polyphagia. Cardiovascular: Denies chest pain, palpitations, or dizziness. Respiratory: Denies cough or shortness of breath. ABD/GI: Denies abdominal pain, nausea, vomiting, constipation, diarrhea or incontinence. Musculoskeletal/Extremities : Denies edema. Denies pain. /CERTIFIED MASTER SAFECRACKER: Denies frequency, hesitancy, urgency, or hematuria. Psychology: Denies insomnia or SI/HI. Denies anxiety or depression. Neurology: Denies RAMIREZ, tremors, neuropathy, or seizures. Skin: Denies rashes, skin lesions. PHYSICAL EXAMINATION: VITALS (most recent, as listed in the electronic record): Temperature: 97.5 F [36.4 C] (10/23/2024 09:53) BP: 124/60 (10/23/2024 10:21) Pulse: 79 (10/23/2024 09:53) Resp: 18 (10/23/2024 09:53) PulsOx: 96% (10/23/2024 09:53) Pain: 0 (10/23/2024 09:53) Weight: Measurement DT WEIGHT LB(KG)[BMI] 10/23/2024 09:53 204.2(92.62)[29*] HEENT: EOMI, PERRLA, Moist mucous membranes. No Scleral icterus or cervical lymphadenopathy. Lungs: Clear to auscultation bilaterally. No accessory muscle use. Cardiovascular: Regular rate and rhythm. No murmur. No JVD. Abdomen: Soft, nontender and non-distended. No palpable masses. Positive bowel sounds in all four quadrants. Extremities: No edema. Nontender. Full ROM to all joints. 2+ pedal pulses bilaterally. Gait steady. : Deferred. Neurologic: No focal neurological deficits. Psychiatric: Appropriate mood and affect. Skin: Skin warm, dry and intact. No lesions or rashes noted. Health maintenance: -Declines immunizations today. Immunization Series Date Facility Reaction Info COVID-19 (MODERNA), MRNA, LNP-S,* 2 07/29/2020 [facility] COVID-19 (U-NOTEA), MRNA, LNP-S,* 1 07/08/2020 [facility] COVID-19 (nubelo), MRNA, LNP-S, * 5 03/29/2022 [facility] COVID-19 (nubelo), MRNA, LNP-S, * 3 03/27/2021 [facility] COVID-19 (nubelo), MRNA, LNP-S, * 2 07/29/2020 [facility]* <C> COVID-19 (PFIZER), MRNA, LNP-S, * 1 07/08/2020 [facility]* <C> COVID-19 (PFIZER), MRNA, LNP-S, * 4 10/12/2021 [facility] COVID-19 (nubelo), MRNA, LNP-S, * 1 05/23/2024 [facility] COVID-19 (nubelo), MRNA, LNP-S, * 1 03/22/2023 [facility] INFLUENZA, HIGH-DOSE, TRIVALENT,* 1 05/23/2024 [facility] PNEUMOCOCCAL CONJUGATE PCV 13 2 02/02/2018 [facility] PNEUMOCOCCAL POLYSACCHARIDE PPV23 1 12/15/2016 [facility] ZOSTER RECOMBINANT 2 11/18/2022 [facility] ZOSTER RECOMBINANT 1 08/17/2022 [facility] -Reports being UTD on TDAP. Colonoscopy: Obtained in the private sector in approx. 2021, denies mentioning a repeat. Patient unsure of name of GI specialist. Patient reports his has a history of colon cancer. PSA: 1.178 ng/mL 08/11/2022. Obtains labs int he private sector. LDCT: Does not qualify. AAA screening: Exam Date/Time 11/25/2023 07:02 Procedure Name US AAA SCREENING Reason for Study Screening due to smoking history Impression No sonographic evidence of abdominal aortic aneurysm. Eye exam: Evaluation and management per private optometry. Obtains labs in the private sector with private PCP, reports obtained within the past month. Will ask RNCM to obtain records for informational purposes. ASSESSMENT/PLAN: Annual visit: -Routine labs reviewed. -Preventative [...] TO CLINIC: 1 year or earlier as needed. SUMMARY STATEMENT: Plan of care has been discussed with including expected therapeutic benefits and potential side effects of prescribed medication and treatments. [place] verbalizes understanding and is in agreement with the plan of care. Patient was instructed to keep all scheduled appointments and contact debone supervisor for any additional problems. Medication Reconciliation Opt STL: I have reviewed the patient's medication list (including active outpatient prescriptions dispensed from this [facility] (local) and dispensed from another [place] or [place] facility (remote) as well as inpatient orders (local pending and active), local clinic medications, locally documented non-VA medications, and local prescriptions that have or been discontinued in the past 90 days.) with the patient and/or his/her care-consumer services consultant. Handwritten corrections, additions and/or deletions were made to the list, as appropriate. Corrected Outpatient Medication List was provided to the patient/caregiver. Avg Risk Colorectal Cancer Screen - L,N,P,PH: AVERAGE RISK colorectal cancer screening is due based on information available to this clinical reminder Patient has arranged or is choosing to arrange this care independent of and without assistance from this [facility]. Sexual Orientation - CP,L,N,P,PH,PS,S,U: The patient thinks of their sexual orientation as: Straight or Heterosexual HTN Assess for Elevated BP>=140/90 - N,P,PH: Repeat blood pressure: 124/60 The patient was counseled on the importance [...] and 1 drink per day for women. PAVE Foot Check - L,N,P,PH,PO,PT,U: A complete foot check was completed at [...] diminished) SENSORY CHECK: Includes 10 gram Monofilament (Stamps-Andrew) test of sensation. Intact (Greater than or equal to 80% of sites checked) Abnormal (Less than 80% of sites checked): Abnormal (decreased or absent sensation to monofilament): Comment: Bilateral heels. HIGH-RISK: HIGH RISK INFORMATION PROVIDED: 1. Advised patient that extra depth footwear with soft molded inserts and braces may be required. 2. Advised patient not to walk barefoot. 3. Explained the importance of daily foot checks. 4. Stressed the importance of daily foot hygiene, including bathing, complete drying and thorough inspection for changes. The patient verbalized understanding and was offered a detailed handout on diabetic foot care. Patient declined referral to Podiatry. Will follow up with Primary Care as scheduled. /martha/ Sangeeta Lopez DNP, SPINNING LATHE OPERATOR AUTOMATIC, FURNITURE FINISHER HELPER-C Primary Care Nurse Practitioner Signed: 10/23/2024 10:25 [facility] October 23, 2024 10:10 AM PRIMARY CARE NOTE: LOCAL TITLE: PRIMARY CARE PROVIDER ESTABLISHED VISIT [facility] STANDARD TITLE: PRIMARY CARE NOTE DATE OF NOTE: OCTOBER 23, 2024@10:10 ENTRY DATE: OCTOBER 23, 2024@10:10:23 AUTHOR: SANGEETA LOPEZ EXP COSIGNER: URGENCY: STATUS: COMPLETED PRIMARY CARE PROVIDER ESTABLISHED VISIT [facility] Has ADDENDA REASON FOR VISIT/CHIEF COMPLAINT: Evaluation and management of chronic medical conditions/ My scheduled visit HPI: Patient is a 74 year old WHITE MALE who presents to the clinic for evaluation and management of chronic medical conditions. Patient denies any recent ED visits or hospitalizations. Patient goes by Pat. Private providers: -Patient reports his private PCP manages his primary care. Patient reports coming to the [place] for [place] medications. -Private PCP Dr. Melody George in [place], [place]. -Private optometry at [facility]. #DM 2: -HGA1C: Reports has obtained in the private sector recently and was 6.6. -Medications: EMPAGLIFLOZIN. -Reports compliance to medication regimen. -Checking blood sugar: Denies. Denies having diabetic supplies at home, declines supplies today. -Eye exam: Had Tele retinal 10/20/23. -Foot exam: See reminders. -Micral: Obtains in the private sector. -Statin: Yes. -ACEI: None. -Denies recent hypo/hyperglycemia episodes. #HLD: -Medication: Simvastatin. -Reports compliance with medication regimen. -Denies any new onset of myalgias. #COPD: -Medications: Albuterol PRN. -Denies increased SOB, coughing, wheezing, mucus production or hemoptysis. #Allergic rhinitis: -Medication: Benadryl PRN and Sinus rinses. -Controlled per patient. SOURCE(S) OF HISTORY: Patient PAST MEDICAL HISTORY: 1) Diabetes Mellitus Type 2 ([facility] [id number]) 2) COPD - Chronic Obstructive Pulmonary Disease ([facility] [id number]) 3) Hyperlipidemia ([facility] [id number]) 4) Allergic rhinitis 5) Exposure to potentially hazardous substance ([facility] [id number]) comment: Entered automatically through [facility] Problem List documentation prog SOCIAL HISTORY: Tobacco: Former smoker. Quit at [...] (CFC-F) 200D ORAL INHL INHALE 2 PUFFS BY ACTIVE ORAL INHALATION FOUR TIMES A DAY NEEDED FOR BREATHING. SHAKE WELL. RINSE MOUTHPIECE FREQUENTLY TO PREVENT CLOGGING. Inactive Outpatient Medications Status 1) EMPAGLIFLOZIN 25MG TAB TAKE ONE TABLET BY MOUTH ONCE A DAY 2) SIMVASTATIN 80MG TAB TAKE ONE-HALF TABLET BY MOUTH EVERY EVENING TO LOWER CHOLESTEROL (REPORT ANY MUSCLE PAIN OR WEAKNESS) Active Non-VA Medications Status 1) Non-VA SINUS RINSE NEILMED REGULAR KIT 1 KIT NOSTRIL(S) ONCE ACTIVE A DAY Indication: FOR NASAL CONGESTION 4 Total Medications REVIEW OF SYSTEMS: Constitutional: Denies weight loss, fever, chills. Ears, Nose, Mouth, Throat: Denies nasal drainage or sore throat. Denies dizziness. Endocrinology: Denies heat or cold intolerance, polydipsia, polyuria, or polyphagia. Cardiovascular: Denies chest pain, palpitations, or dizziness. Respiratory: Denies cough or shortness of breath. ABD/GI: Denies abdominal pain, nausea, vomiting, constipation, diarrhea or incontinence. Musculoskeletal/Extremities : Denies edema. Denies pain. /CERTIFIED MASTER SAFECRACKER: Denies frequency, hesitancy, urgency, or hematuria. Psychology: Denies insomnia or SI/HI. Denies anxiety or depression. Neurology: Denies RAMIREZ, tremors, neuropathy, or seizures. Skin: Denies rashes, skin lesions. PHYSICAL EXAMINATION: VITALS (most recent, as listed in the electronic record): Temperature: 97.5 F [36.4 C] (10/23/2024 09:53) BP: 124/60 (10/23/2024 10:21) Pulse: 79 (10/23/2024 09:53) Resp: 18 (10/23/2024 09:53) PulsOx: 96% (10/23/2024 09:53) Pain: 0 (10/23/2024 09:53) Weight: Measurement DT WEIGHT LB(KG)[BMI] 10/23/2024 09:53 204.2(92.62)[29*] HEENT: EOMI, PERRLA, Moist mucous membranes. No Scleral icterus or cervical lymphadenopathy. Lungs: Clear to auscultation bilaterally. No accessory muscle use. Cardiovascular: Regular rate and rhythm. No murmur. No JVD. Abdomen: Soft, nontender and non-distended. No palpable masses. Positive bowel sounds in all four quadrants. Extremities: No edema. Nontender. Full ROM to all joints. 2+ pedal pulses bilaterally. Gait steady. : Deferred. Neurologic: No focal neurological deficits. Psychiatric: Appropriate mood and affect. Skin: Skin warm, dry and intact. No lesions or rashes noted. Health maintenance: -Declines immunizations today. Immunization Series Date Facility Reaction Info COVID-19 (MODERNA), MRNA, LNP-S,* 2 07/29/2020 [facility] COVID-19 (wywy), MRNA, LNP-S,* 1 07/08/2020 [facility] COVID-19 (nubelo), MRNA, LNP-S, * 5 03/29/2022 [facility] COVID-19 (nubelo), MRNA, LNP-S, * 3 03/27/2021 [facility] COVID-19 (nubelo), MRNA, LNP-S, * 2 07/29/2020 [facility]* <C> COVID-19 (PFIZER), MRNA, LNP-S, * 1 07/08/2020 [facility]* <C> COVID-19 (PFIZER), MRNA, LNP-S, * 4 10/12/2021 [facility] COVID-19 (nubelo), MRNA, LNP-S, * 1 05/23/2024 [facility] COVID-19 (nubelo), MRNA, LNP-S, * 1 03/22/2023 [facility] INFLUENZA, HIGH-DOSE, TRIVALENT,* 1 05/23/2024 [facility] PNEUMOCOCCAL CONJUGATE PCV 13 2 [...] of colon cancer. PSA: 1.178 ng/mL 08/11/2022. Obtains labs int he private sector. LDCT: Does not qualify. AAA screening: Exam Date/Time 11/25/2023 07:02 Procedure Name US AAA SCREENING Reason for Study Screening due to smoking history Impression No sonographic evidence of abdominal aortic aneurysm. Eye exam: Evaluation and management per private optometry. Obtains labs in the private sector with private PCP, reports obtained within the past month. Will ask RNCM to obtain records for informational purposes. ASSESSMENT/PLAN: Annual visit: -Routine labs reviewed. -Preventative [...] TO CLINIC: 1 year or earlier as needed. SUMMARY STATEMENT: Plan of care has been discussed with including expected therapeutic benefits and potential side effects of prescribed medication and treatments. [place] verbalizes understanding and is in agreement with the plan of care. Patient was instructed to keep all scheduled appointments and contact debone supervisor for any additional problems. Medication Reconciliation Opt STL: I have reviewed the patient's medication list (including active outpatient prescriptions dispensed from this [facility] (local) and dispensed from another VA or DoD facility (remote) as well as inpatient orders (local pending and active), local clinic medications, locally documented non-VA medications, and local prescriptions that have or been discontinued in the past 90 days.) with the patient and/or his/her care-consumer services consultant. Handwritten corrections, additions and/or deletions were made to the list, as appropriate. Corrected Outpatient Medication List was provided to the patient/caregiver. Avg Risk Colorectal Cancer Screen - L,N,P,PH: AVERAGE RISK colorectal cancer screening is due based on information available to this clinical reminder Patient has arranged or is choosing to arrange this care independent of and without assistance from this VA. Sexual Orientation - CP,L,N,P,PH,PS,S,U: The patient thinks of their sexual orientation as: Straight or Heterosexual HTN Assess for Elevated BP>=140/90 - N,P,PH: Repeat blood pressure: 124/60 The patient was counseled on the importance [...] and 1 drink per day for women. PAVE Foot Check - L,N,P,PH,PO,PT,U: A complete foot check was completed at [...] diminished) SENSORY CHECK: Includes 10 gram Monofilament (Stamps-Andrew) test of sensation. Intact (Greater than or equal to 80% of sites checked) Abnormal (Less than 80% of sites checked): Abnormal (decreased or absent sensation to monofilament): Comment: Bilateral heels. HIGH-RISK: HIGH RISK INFORMATION PROVIDED: 1. Advised patient that extra depth footwear with soft molded inserts and braces may be required. 2. Advised patient not to walk barefoot. 3. Explained the importance of daily foot checks. 4. Stressed the importance of daily foot hygiene, including bathing, complete drying and thorough inspection for changes. The patient verbalized understanding and was offered a detailed handout on diabetic foot care. Patient declined referral to Podiatry. Will follow up with Primary Care as scheduled. /martha/ Sangeeta Lopez DNP, APRN, GENEVIEVE-C Primary Care Nurse Practitioner Signed: 10/23/2024 10:25 10/23/2024 ADDENDUM STATUS: COMPLETED Obtains labs in the private sector with private PCP, reports obtained within the past month. Will ask RNCM to obtain records for informational purposes. -Private PCP Dr. Melody George in [place], [place]. /martha/ Sangeeta Lopez DNP, APRN, FURNITURE FINISHER HELPER-C Primary Care Nurse Practitioner Signed: 10/23/2024 10:26 Receipt Acknowledged By: 10/23/2024 14:04 /martha/ ANGELA SEPULVEDA RN BSN REGISTERED NURSE 10/23/2024 ADDENDUM STATUS: COMPLETED RN requested labs via ecfax. /nahid SEPULVEDA RN BSN REGISTERED NURSE Signed: 10/23/2024 14:05 SANGEETA LOPEZ [facility] October 23, 2024 09:59 AM NURSING NOTE: LOCAL TITLE: V15 PACT FACE TO FACE NOTE STL STANDARD TITLE: NURSING NOTE DATE OF NOTE: OCTOBER 23, 2024@09:59 ENTRY DATE: OCTOBER 23, 2024@09:59:33 AUTHOR: KENNETH ESTEVES COSIGNER: URGENCY: STATUS: COMPLETED Provider Visit: Patient Identifiers : Full Name Date of Reason for visit: Established Follow-Up Mode of Arrival: Ambulatory Allergy Review: Patient has answered NKA Allergy list reviewed and remains current. Recent Vital Signs: Temperature: 97.5 F [36.4 C] (10/23/2024 09:53) Pulse: 79 (10/23/2024 09:53) Respiration: 18 (10/23/2024 09:53) B/P: 149/71 (10/23/2024 09:53) Pain: 0 (10/23/2024 09:53) Wt: 204.2 lb [92.62 kg] (10/23/2024 09:53) Ht: 71 in [180.3 cm] (10/20/2023 14:44) BMI: 28.5 POX: 96% (10/23/2024 09:53) PERSONAL HEALTH INVENTORY Notes: No data available for PHI note titles PERSONAL HEALTH INVENTORY - MAP: No data available for PHI MAP What matters most to you in your life right now? -- 's Response: good health WHOLE HEALTH SHARED GOALS: PERSONAL HEALTH PLAN - SHARED GOALS: No data available for: Php Shared Goals SHARED GOALS staying healthy Would you like to discuss any personal problem, family problem, alcohol use, drug use, or a mental or emotional illness? No My [facility] ([facility]), please select appointment type: Face to face: Yes- Done Contact provided Primary Care phone number and encouraged to call if any questions or concerns. Review that after hours nurse line [phone] and emergency room are available 10/01 for patient use. Contact verbalized good understanding. Suicide Screen - V: C-SSRS Screening [place] Suicide Severity Rating Scale (C-SSRS) screener 1. Over the past month, have you [...] required due to responses to other questions. Alcohol Use Screen (AUDIT-C) - V: Alcohol Screen: SCREEN FOR ALCOHOL (AUDIT-C) An alcohol screening test (AUDIT-C) was negative (score=4). 1. How often did you have a drink containing alcohol in the past year? Consider a drink to be a 12 ounce can or bottle of regular beer, 8 ounces of malt liquor, a 5 ounce glass of table wine, or a 1.5 ounce shot of liquor (like scotch, gin, or vodka). Four or more times a week 2. How many drinks containing alcohol did you have on a typical day when you were drinking in the past year? One or two drinks 3. How often did you have six or more drinks on one occasion in the past year? Never Depression Screening - V: Perform PHQ-2 A PHQ-2 screen was performed. The score was 0 which is a negative screen for depression. Over the past two weeks, how often have you been bothered by the following problems? 1. Little interest or pleasure in doing things Not at all 2. Feeling down, depressed, or hopeless Not at all Homelessness/Food Insecurity Screen - DI,L,N,P,PH,PS,S,U: In the past 2 months, have you [...] Not worried about housing near future [facility] [place] reports the following: Within the past 12 months, you worried whether your food would run out before you got money to buy more. Never true Within the past 12 months, the food you bought just didn't last and you didn't have money to get more. Never true Tobacco Use Screening - AT,DE,L,M,N,P,PH,PS,RT,S,U: The patient is a former cigarette smoker. The patient has never used other types of tobacco. Tdap Immunization - L,N,P,PH,U: The patient declines to receive the recommended dose of Tdap vaccine. Immunization: TDAP Refusal Reason: PATIENT DECISION Patient refuses all immunization(s) in the TDAP group Date Documented: 10/23/24 10:05 /martha/ KENNETH ESTEVES LPN LICENSED PRACITCAL NURSE Signed: 10/23/2024 10:05 KENNETH ESTEVES [facility]
--- OUTSIDE RECORDS SUMMARY | 2024-11-10 20:11 | XMS_ITS | Encounter Summary ---
Author Organization [facility] Address [address] [place] [address] Care Team Providers Care Brick And Block Mason Name Role Phone Unavailable Primary Care Provider Unavailabl e Encounter Details Date Type Department Care Team (Late st Contact Info) Description 09/22/[address] 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
--- OUTSIDE RECORDS SUMMARY | 2024-11-10 20:11 | XMS_ITS | Encounter Summary ---
Author Organization [facility] Address 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
--- OUTSIDE RECORDS SUMMARY | 2024-11-10 20:11 | XMS_ITS | Encounter Summary ---
Author Organization [facility] Address 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 [...] NEW PRESCRIPTION, 08/09/2005. LAB ORDERS: Order number: [id number] Test Ordered: CHEST XRAY St[facility],[employer] today lab for 1 mo Order number: [id number] Test Ordered: LIPID PANEL 7600 Order number: [id number] Test Ordered: TSH 899 Order number: [id number] Test Ordered: COMPREHENSIVE METABOLIC PANEL W/ GLOMERULAR FILTRATION RATE, ESTIMATED (EGFR) [id number] Order number: [id number] Test Ordered: PSA 5363 796.2-BLOOD PRESSURE ELEVATED [...]
--- OUTSIDE RECORDS SUMMARY | 2024-11-10 20:11 | XMS_ITS | Encounter Summary ---
Author Organization [facility] Address 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 [...] 09/22/2005. 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
[2024-11-10 20:32] LABS: Basophils Absolute Auto 0.1 K/mm3 (0.0-0.1); Basophils Percent Auto 0.9 % (0.2-1.2); Eosinophils Absolute Auto 0.3 K/mm3 (0-0.3); Eosinophils Percent Auto 4.8 % (0-4.4); Hematocrit 44.3 % (42.0-52.0); Immature Granulocyte Absolute 0.01 K/mm3 (0.00-0.031); Immature Granulocyte Percent A 0.2 % (0-0.5); Lymphocytes Absolute Auto 1.36 K/mm3 (0.9-3.2); Lymphocytes Percent Auto 24.9 % (18.3-44.2); Mean Corpuscular HGB Conc 33.9 g/dl (32-36); Mean Corpuscular Hemoglobin 32.5 pg (26-34); Mean Corpuscular Volume 95.9 fl (80-100); Mean Platelet Volume 9.5 fl (7.4-10.4); Monocytes Absolute Auto 0.6 K/mm3 (0.1-0.6); Monocytes Percent Auto 10.2 % (2.6-8.5); Neutrophils Absolute Auto 3.2 K/mm3 (1.3-6.7); Platelet Count Result 226 k/mm3 (150-375); Red Blood Count 4.62 M/mm3 (4.6-6.20); Red Cell Distribution Width 12.4 % (11.5-14.5); White Blood Count 5.5 K/mm3 (4.5-10.0)
[2024-11-10] MEDS: IPRATROPIUM 0.5 MG/ALBUTEROL SULFATE 2.5 MG AMPUL.NEB 3 ML INHALATION (20:35)
[2024-11-10 20:43] LABS: Alanine Aminotransferase 29 U/L (6-50); Albumin Level 4.8 g/dL (3.5-5.1); Alkaline Phosphatase 61 U/L (38-126); Anion Gap 14 mmol/L (4-12); Aspartate Amino Transferase 37 U/L (17-59); Bilirubin,Total 0.4 mg/dL (0.2-1.3); Blood Urea Nitrogen 16 mg/dL (9-20); Calcium 9.3 mg/dL (8.4-10.2); Carbon Dioxide 18 mmol/L (22-30); Chloride 109 mmol/L (98-107); Estimated CRCL calculation 93 ml/min; Estimated Glomerular Filt Rate > 60; Glucose 154 mg/dL (65-110); Lipase 70 U/L (23-300); Magnesium 2.2 mg/dL (1.6-2.3); Potassium 3.3 mmol/L (3.4-5.0); Sodium 141 mmol/L (137-145)
[2024-11-10 20:45] LABS: Prothrombin Time 13.5 Seconds (11.1-14.7)
[2024-11-10 20:47] LABS: Partial Thromboplastin Time 28.4 Seconds (22.3-36.8)
[2024-11-10 20:54] LABS: Troponin I < 0.012 ng/mL (0.000-0.034)
[2024-11-10] MEDS: POTASSIUM CHLORIDE 20 MEQ PACKET (FOR LIQUID) 40 MEQ PO (22:06)
== END 2024-11-10 22:17 | disposition home or self-care (01) ==
PROVIDERS: Student in an Organized Health Care Education/Training Program; Emergency Provider Registered Nurse; PCP Internal Medicine
DX: T78.49XA Other allergy, initial encounter (principal); E11.9 Type 2 diabetes mellitus without complications; E78.5 Hyperlipidemia, unspecified; Z87.891 Personal history of nicotine dependence
CPT/HCPCS: 36415; 71045; 80053; 83690; 83735; 84484; 85025; 85610; 85730; 93005; 94640; 96361; 96365; 96366; 96375; 99284; A9270; J3475; J7030

== ENCOUNTER 2025-05-15 12:05 | Outpatient (CLI) | payer MEDICARE, SELFPAY ==
--- OUTSIDE RECORDS SUMMARY | 2025-05-15 12:29 | XMS_ITS | Encounter Summary ---
Author Organization [facility] Address 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 [...] NEW PRESCRIPTION, 08/09/2005. LAB ORDERS: Order number: [id number] Test Ordered: CHEST XRAY [facility] today lab for 1 mo Order number: [id number] Test Ordered: LIPID PANEL 7600 Order number: [id number] Test Ordered: TSH 899 Order number: [id number] Test Ordered: COMPREHENSIVE METABOLIC PANEL W/ GLOMERULAR FILTRATION RATE, ESTIMATED (EGFR) [id number] Order number: [id number] Test Ordered: PSA 5363 796.2-BLOOD PRESSURE ELEVATED [...]
--- OUTSIDE RECORDS SUMMARY | 2025-05-15 12:29 | XMS_ITS | Clinical Summary ---
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 Gender Identity Not on file Sexual Orientation Not on file Last Filed Vital Signs Vital Sign Reading Time Taken Comments Blood Pressure 140/90 08/09/2005 12:00 PM PUBLIC HEALTH TECHNICIAN Pulse - - Temperature 36.4 C (97.52 F) 08/09/2005 12:00 PM PUBLIC HEALTH TECHNICIAN Respiratory Rate - - Oxygen Saturation - - Inhaled Oxygen Concentration - - Weight 98.9 kg (218 lb) 08/09/2005 12:00 PM PUBLIC HEALTH TECHNICIAN Height 180.3 cm (5' 11) 08/09/2005 12:00 PM PUBLIC HEALTH TECHNICIAN Body Mass Index 30.4 08/09/2005 12:00 PM PUBLIC HEALTH TECHNICIAN Plan of Treatment Health Maintenance Due Date Last Done Comments COLORECTAL SCREENING 02/02/1996 FIT-DNA Q 3 years 02/02/1996 Flex Sig/CT Colonography Q 5 years 02/02/1996 DTAP/TDAP/TD VACCINES (1 - Tdap) 11/27/1998 11/26/18 99 PNEUMOCOCCAL VACCINE 50+ YEARS (1 of 1 - PCV) 02/02/20 01 ZOSTER VACCINE (1 of 2) 2001 Colorectal Cancer Screening 09/22/2006 FIT/FOBT Q 1 year 09/22/2006 09/22/2005 INFLUENZA VACCINE (#1) 2025 RSV VACCINE (60+ or ) (1 - 1-dose 75+ series) 2026
--- OUTSIDE RECORDS SUMMARY | 2025-05-15 12:29 | XMS_ITS | Encounter Summary ---
Author Organization [facility] Address 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
--- OUTSIDE RECORDS SUMMARY | 2025-05-15 12:29 | XMS_ITS | Encounter Summary ---
Author Organization [facility] Address [address] [place] [address] Care Team Providers Care Head Athletic Trainer/Strength Coach Name Role Phone Unavailable Primary Care Provider Unavailabl e Encounter Details Date Type Department Care Team (Late st Contact Info) Description 09/22/2005 Orders Only [facility] Internal Medicine [address] [address] Nik Winn MD [address] [place] [phone] Social History Tobacco Use Types Packs/Day Years Used Date Smoking Tobacco: Never Assessed Sex and Gender Information Value Date Recorded Sex Assigned at Not on file Legal Sex Male 3:27 AM PATIENT SCHEDULING COORDINATOR Gender Identity Not on file Sexual Orientation [...] several years ago. 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 [...] 09/22/2005. LAB ORDERS: 3 mo Order number: [id number] Test Ordered: LIPID PANEL 7600 Order number: [id number] Test Ordered: ALT 823 305.1-TOBACCO ABUSE quit 602.9-OTHER DISORDERS OF PROSTATE psa ok, recheck 1 year LAB ORDERS: Order number: [id number] Test Ordered: HEMOCCULT SINGLE 52054 796.2-BLOOD PRESSURE ELEVATED W/O DX OF HTN [...]
--- OUTSIDE RECORDS SUMMARY | 2025-05-15 12:29 | XMS_ITS | Encounter Summary ---
Author Organization [facility] Address 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
--- OUTSIDE RECORDS SUMMARY | 2025-05-15 12:29 | XMS_ITS | Encounter Summary ---
Author Organization [facility] Address 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4 08/09/2005 12:00 PM PLATFORM OPERATIONS DIRECTOR documented in this encounter Plan of Treatment Not on file documented as of this encounter Visit Diagnoses Not on filedocumented in this encounter
[2025-05-20 07:07] LABS: I006-IgE Cockroach, German <0.10 kU/L (Class 0); T006-IgE Cedar, Mountain <0.10 kU/L (Class 0); T007-IgE Oak, White <0.10 kU/L (Class 0); T008-IgE Elm, American <0.10 kU/L (Class 0); T015-IgE Ash, White <0.10 kU/L (Class 0); T022-IgE Pecan, Hickory <0.10 kU/L (Class 0); W001-IgE Ragweed, Short <0.10 kU/L (Class 0); W011-IgE Thistle, Russian <0.10 kU/L (Class 0); W014-IgE Pigweed, Common <0.10 kU/L (Class 0); W016-IgE Rough Marshelder <0.10 kU/L (Class 0)
== END 2025-05-15 12:06 | disposition home or self-care (01) ==
LOC: CHSLAB 12:08
PROVIDERS: PCP Internal Medicine
DX: J34.3 Hypertrophy of nasal turbinates (principal); R06.2 Wheezing; R06.02 Shortness of breath
CPT/HCPCS: 82785; 86003